=== PATIENT | female | born 1995 | race Caucasian/White ===

== ENCOUNTER 2021-09-20 15:17 | Inpatient (IN) ==
[2021-09-20] MEDS ORDERED: MoRPHine SULFATE 4 MG/ML 1 ML CARP\\VIAL IV STA (15:47)
[2021-09-20] MEDS ORDERED: ONDANSETRON INJ 2 MG/ML 2 ML VIAL IV STA (15:47)
[2021-09-20] MEDS ORDERED: SODIUM CHLORIDE 0.9% 1000ML 1,000 ML IV SCH (15:48)
--- NOTE | 2021-09-20 15:51 | Emergency Department Note ---
History of Present Illness General Chief complaint: Abdominal Pain Stated complaint: URQ PAIN Time Seen by Provider: 09/20/21 15:25 History of Present Illness Maximum Pain Intensity: 7 Patient is a 26-year-old female with past medical history significant for morbid obesity, anxiety, depression, migraine disorder, who presents emergency department for evaluation of right-sided abdominal pain since last evening. Patient notes that she has been having episodes of right upper quadrant pain on and off for several months. She states the pain can come on quite abruptly, unrelated to eating, and last for several hours. She describes it as a dull ache that steadily escalates. She sometimes vomits. She has tried Pepto-Bismol and Gas-X in the past. She thought the pain was "gas pain." Yesterday, the pain started last evening, and has been constant. At its worse, between 1000 and 1300 today, she notes that she was doubled over on the floor in pain, with her discomfort a 10/10. She notes the pain starts in the epigastric and the right upper quadrant, then starts to radiate down to the right lower quadrant and into the right flank. She states the pain became worse even after sipping water today. She currently rates her pain a 7/10. She denies any fever or chills. No vomiting today. She had some loose stools yesterday. No urinary symptoms. She is currently menstruating. She notes that she had an episode of "food poisoning" 1 week ago. She states that they ate out at a restaurant, and she woke up acutely at 4:00 the following morning with aches, chills, low-grade fever and multiple episodes of vomiting. She had no abdominal pain with this. Her symptoms resolved after roughly 24 hours. There is a family history of gallbladder disease. She denies excess caffeine, NSAID or alcohol use. Home Medications Medication Instructions Recorded Confirmed Type sertraline 50 mg tablet 50 mg PO DAILY #90 tab 11/23/20 09/20/21 Rx [id number]-[id number]-[id number] 1 cap PO DAILY PRN #10 cap 08/03/21 09/20/21 Rx 50 mg-300 mg-40 mg capsule (Fioricet) topiramate 100 mg tablet 100 mg PO BID 30 Days #60 tab 08/09/21 09/20/21 Rx sertraline 25 mg tablet 25 mg PO DAILY 09/20/21 09/20/21 History Allergies Allergy/AdvReac Type Severity Reaction Status Date / Time No Known Drug Allergies Allergy Unknown Unknown Verified 09/20/21 16:46 Past Med/Surg History Medical History Anxiety Back pain Depression Migraines Morbid obesity Surgical History History of placement of ear tubes History of wisdom tooth extraction Family History Grandfather (Paternal) Prostate cancer Grandmother Asthma Cancer Heart disease Grandfather Hearing loss Other Allergies Migraine No family history of bleeding disorder Denies family history of Ovarian cancer Diabetes Myocardial infarction Breast cancer Lung cancer Colorectal cancer Hypertension Stroke Social History Smoking Status: Never smoker Second Hand Exposure: No; Hx Alcohol Use: Yes Alcohol type: beer and hard liquor Alcohol Intake Frequency: Monthly or Less Hx Substance Use: No Preferred Language: Scottish Communication Ability: Effective Visual Impairment: No Limitations Hearing Ability: Normal Institutional Research Director Required: No marital status: Single Current Living Situation: Significant Other current occupational status: unemployed How many Children do You have: 0 Feels Safe at Home: Yes Childhood Exposure to Second-Hand Smoke: Yes Dental Care, Regularly: Yes Physical Activity Frequency: 1-2 Times per Week Seatbelt Use: always Sunscreen Use: Yes Review of Systems A total of 10 systems reviewed and were otherwise negative Physical Exam Vital Signs Vital Signs - 24 hr 09/20/21 15:22 09/20/21 16:08 09/20/21 16:10 Temperature 36.8 C Temperature Source Temporal Artery Scan Pulse Rate 83 70 64 Pulse Rate from SpO2 Sensor 72 64 Respiratory Rate 16 15 22 Blood Pressure 139/91 Blood Pressure Mean 107 Pulse Oximetry 96 96 98 Oxygen Delivery Method Room Air Sepsis Recent Fever Within 48 Hours No Sepsis New/Unexplained Change in Mental Status N/A Sepsis Action Taken by Nursing No Action Required 09/20/21 17:12 09/20/21 17:13 09/20/21 17:20 Temperature Temperature Source Pulse Rate 73 73 71 Pulse Rate from SpO2 Sensor 74 74 Respiratory Rate 11 L 17 26 H Blood Pressure 130/89 Blood Pressure Mean 102 Pulse Oximetry 99 93 Oxygen Delivery Method Sepsis Recent Fever Within 48 Hours Sepsis New/Unexplained Change in Mental Status Sepsis Action Taken by Nursing 09/20/21 17:30 09/20/21 17:40 09/20/21 17:50 Temperature Temperature Source Pulse Rate 72 74 69 Pulse Rate from SpO2 Sensor 72 76 70 Respiratory Rate 22 17 26 H Blood Pressure 137/81 Blood Pressure Mean 99 Pulse Oximetry 98 98 98 Oxygen Delivery Method Sepsis Recent Fever Within 48 Hours Sepsis New/Unexplained Change in Mental Status Sepsis Action Taken by Nursing CONSTITUTIONAL: Patient is an overweight, uncomfortable appearing 26-year-old female who is awake and alert and seated on a gurney. Boyfriend is at the bedside. EYES: Pupils equal, round, reactive to light and accommodation. EOMs intact w ithout nystagmus. Sclera are anicteric. ENT: Tympanic membranes intact, with normal landmarks. External canals are clear. Oral and nasopharynx are clear. Mucous membranes are moist, no lesions, tongue and gums appear normal. CARDIOVASCULAR: Regular rate and rhythm, with normal S1 and S2, no murmur or gallop or rub is heard. Peripheral pulses easily palpable. RESPIRATORY: Breath sounds equal and clear to auscultation without wheezes, rales, or rhonchi heard. Full and equal chest expansion without accessory muscle use or retractions. ABDOMEN: Bowel sounds are present. Abdomen is soft, obese, tender to percussion and palpation in the epigastric and the right upper quadrant with voluntary guarding. There is no pain in the right lower quadrant over McBurney's point. INTEGUMENTARY: No lesions or rash, normal skin turgor. LYMPH: No lymphadenopathy. Course Course The patient was seen and assessed as above. Old records are reviewed. She presents the emergency department for evaluation of right upper quadrant abdominal pain, that sounds biliary in nature. IV lock was initiated and laboratory studies were collected. CBC with differential, CMP, lipase, serum hCG and urinalysis were ordered. She was made n.p.o., and hydrated with a liter bolus of normal saline solution. She was medicated with morphine 4 mg and Zofran 4 mg IV. Laboratory studies note and elevated white count at 13,000 with left shift and bandemia noted. No anemia. Electrolytes and renal functions are normal. Bilirubin elevated at 2.3, transaminases all elevated, AST 179, ALT 234, alk phos 111. Lipase is within normal limits. Serum hCG is negative. Urine microscopy is pending. Gallbladder ultrasound notes sludge-filled gallbladder with suspected gallstones. No biliary ductal dilatation. Common bile duct measures 6 mm. No gallbladder wall thickening. No sonographic evidence for acute cholecystitis. Hepatic steatosis noted. Patient was reassessed. She did have some improvement in her pain with the IV m orphine and tolerated the gallbladder ultrasound well. Laboratory and diagnostic imaging studies were reviewed with her. She is aware that she will need to come into the hospital for further work-up and likely surgical intervention. Consultation was placed with general surgery. Patient was reviewed with Dr. Montoya, who recommended medical admission with GI evaluation due to the elevated bilirubin and transaminitis. Consultation was placed with the [facility] for further care and management. Patient reviewed with Dr. Peralta and admitted to their service. Administered Medications Lactated Ringer's (Lr) 1,000 mls @ 125 mls/hr IV .Q8H RAMO Stop: 10/20/21 20:18 Last Admin: 09/20/21 21:49 Dose: 125 mls/hr Documented by: [id number] Discontinued Medications Sodium Chloride (Nss 1000ml) 1,000 mls @ 999 mls/hr IV .Q1H1M RAMO Stop: 09/20/21 16:48 Last Infusion: 09/20/21 19:11 Dose: 0 mls/hr Documented by: [id number] Admin: 09/20/21 16:08 Dose: 999 mls/hr Documented by: [id number] Piperacillin Sod/Tazobactam Sod (Zosyn) 4.5 gm in 120 mls @ 240 mls/hr IV ONE ONE Stop: 09/20/21 18:44 Last Infusion: 09/20/21 19:47 Dose: 0 mls/hr Documented by: [id number] Admin: 09/20/21 19:06 Dose: 240 mls/hr Documented by: [id number] Morphine Sulfate (Morphine Sulfate 4 Mg/Ml 1 Ml Carp\\Vial) 4 mg IV NOW STA Stop: 09/20/21 15:48 Last Admin: 09/20/21 16:08 Dose: 4 mg Documented by: [id number] Ondansetron HCl (Ondansetron Inj 2 Mg/Ml 2 Ml Vial) 4 mg IV NOW STA Stop: 09/20/21 15:48 Last Admin: 09/20/21 16:08 Dose: 4 mg Documented by: [id number] Medical Decision Making Differential Diagnosis Differential diagnoses entertained included GERD, gastritis, esophagitis, peptic ulcer disease, acute pancreatitis, choledocholithiasis, acute cholecystitis, biliary colic, ascending cholangitis, bowel obstruction, perforation, among others. Medical Records Attestation: I reviewed the patient's medical records. Home Medications Current Medication List: was personally reviewed by me Laboratory Data Attestation: I reviewed the patient's lab results. Result diagrams: 09/20/21 16:05 09/20/21 16:05 Lab Results 09/20/21 09/20/21 09/20/21 Range/Units 16:05 16:05 16:05 WBC 12.99 H (4.8-10.8) K/uL RBC 5.06 (4.2-5.4) M/uL Hgb 15.5 (12.0-16.0) g/dL Hct 45.7 (37-47) % MCV 90.3 (80-100) fL MCH 30.6 (25-34) pg MCHC 33.9 (32-36) g/dL RDW Std Deviation 43.2 (36.4-46.3) fL RDW Coeff of Michael 13.1 (11.5-14.5) % Plt Count 391 (130-400) K/uL MPV 10.3 (7.4-10.4) fL Immature Gran % (Auto) 0.3 % Neut % (Auto) 78.1 % Lymph % (Auto) 12.8 % Sublette % (Auto) 7.4 % Eos % (Auto) 1.2 % Baso % (Auto) 0.2 % Neut # (Auto) 10.14 H (1.4-6.5) K/uL Lymph # (Auto) 1.66 (1.2-3.4) K/uL Sublette # (Auto) 0.96 H (0.11-0.59) K/uL Eos # (Auto) 0.16 (0-0.5) K/uL Baso # (Auto) 0.03 (0-0.2) K/uL Immature Gran # (Auto) 0.04 H (0.00-0.02) K/uL Sodium 142 (136-145) mmol/L Potassium 3.8 (3.5-5.1) mmol/L Chloride 105 (98-107) mmol/L Carbon Dioxide 29 (21-32) mmol/L Anion Gap 8 (3-11) BUN 10 (6-23) mg/dl Creatinine 0.90 (0.6-1.2) mg/dl Est Cr Clr Drug Dosing 140.0 ml/min Est GFR ( Amer) 101.6 ml/min Est GFR (Non-Af Amer) 87.6 ml/min BUN/Creatinine Ratio 11.1 (10-20) Glucose 92 (70-99(Fasting)) mg/dl Calcium 8.9 (8.5-10.1) mg/dl Total Bilirubin 2.3 H (0.2-1.0) mg/dl AST 179 H (13-39) U/L ALT 234 H (7-52) U/L Alkaline Phosphatase 111 H (34-104) U/L Total Protein 7.2 (6.0-8.3) gm/dl Albumin 4.3 (3.4-5.0) gm/dl Globulin 2.9 (2.5-4.0) gm/dl Albumin/Globulin Ratio 1.5 (0.9-2) Lipase 31 (11-82) U/L HCG, Qual Negative (Negative) SARS-CoV-2, RNA, NAAT (NEGATIVE) 09/20/21 Range/Units 17:10 WBC (4.8-10.8) K/uL RBC (4.2-5.4) M/uL Hgb (12.0-16.0) g/dL Hct (37-47) % MCV (80-100) fL MCH (25-34) pg MCHC (32-36) g/dL RDW Std Deviation (36.4-46.3) fL RDW Coeff of Michael (11.5-14.5) % Plt Count (130-400) K/uL MPV (7.4-10.4) fL Immature Gran % (Auto) % Neut % (Auto) % Lymph % (Auto) % [place] % (Auto) % Eos % (Auto) % Baso % (Auto) % Neut # (Auto) (1.4-6.5) K/uL Lymph # (Auto) (1.2-3.4) K/uL Sublette # (Auto) (0.11-0.59) K/uL Eos # (Auto) (0-0.5) K/uL Baso # (Auto) (0-0.2) K/uL Immature Gran # (Auto) (0.00-0.02) K/uL Sodium (136-145) mmol/L Potassium (3.5-5.1) mmol/L Chloride (98-107) mmol/L Carbon Dioxide (21-32) mmol/L Anion Gap (3-11) BUN (6-23) mg/dl Creatinine (0.6-1.2) mg/dl Est Cr Clr Drug Dosing ml/min Est GFR ( Amer) ml/min Est GFR (Non-Af Amer) ml/min BUN/Creatinine Ratio (10-20) Glucose (70-99(Fasting)) mg/dl Calcium (8.5-10.1) mg/dl Total Bilirubin (0.2-1.0) mg/dl AST (13-39) U/L ALT (7-52) U/L Alkaline Phosphatase (34-104) U/L Total Protein (6.0-8.3) gm/dl Albumin (3.4-5.0) gm/dl Globulin (2.5-4.0) gm/dl Albumin/Globulin Ratio (0.9-2) Lipase (11-82) U/L HCG, Qual (Negative) SARS-CoV-2, RNA, NAAT NEGATIVE (NEGATIVE) Imaging Data Attestation: I personally reviewed and interpreted this imaging study as follows: Radiologist's Impression: Gallbladder Ultrasound 09/20/21 15:47 US gallbladder CLINICAL HISTORY: Right upper quadrant abdominal pain. COMPARISON STUDY: No previous studies for comparison. FINDINGS: This study is compromised by suboptimal penetration. Hepatic echogenicity is increased. No hepatic lesions are identified although sensitivity is diminished on this exam. There is no biliary ductal dilatation. Common bile duct measures 6 mm in caliber. The gallbladder is largely sludge- filled. There are suspected small gallstones. No sonographic Dhaliwal sign. No gallbladder wall thickening. Pancreas is obscured. No right hydronephrosis is present. IMPRESSION: 1. Largely sludge-filled gallbladder with suspected small gallstones. No sonographic evidence for acute cholecystitis. 2. Hepatic steatosis. 3. No biliary ductal dilatation. 4. Obscured pancreas. ACT 112: Negative or not required by law. Electronically signed by: Gael Mera M.D. 09/20/2021 5:01 PM MDM Narrative See ED Course. Impression & Plan Acute calculous cholecystitis, Elevated LFTs Discharge Plan Visit Data Chief Complaint: Abdominal Pain Stated Complaint: URQ PAIN ED Provider: Steve Patel ED Midlevel Provider: [facility] Discharge Problem: Acute calculous cholecystitis, Elevated LFTs Patient Disposition: Admitted As Inpatient Discharge Instructions Interventions: ED Discharge Assessment Last Done: 09/20/21 19:24
[2021-09-20 16:38] LABS: Basophils # (auto) 0.03 K/uL (0-0.2); Basophils % (auto) 0.2 %; Eosinophils # (auto) 0.16 K/uL (0-0.5); Eosinophils % (auto) 1.2 %; Hematocrit (blood only) 45.7 % (37-47); Hemoglobin 15.5 g/dL (12.0-16.0); Immature Granulocytes # (auto) 0.04 K/uL (0.00-0.02); Immature Granulocytes % (auto) 0.3 %; Lymphocytes # (auto) 1.66 K/uL (1.2-3.4); Lymphocytes % (auto) 12.8 %; Mean Corpuscular Hemoglobin 30.6 pg (25-34); Mean Corpuscular Hgb Conc 33.9 g/dL (32-36); Mean Corpuscular Volume 90.3 fL (80-100); Mean Platelet Volume 10.3 fL (7.4-10.4); Monocytes # (auto) 0.96 K/uL (0.11-0.59); Monocytes % (auto) 7.4 %; Neutrophils # (auto) 10.14 K/uL (1.4-6.5); Neutrophils % (auto) 78.1 %; Platelet Count 391 K/uL (130-400); RDW Coefficient of Variation 13.1 % (11.5-14.5); RDW Standard Deviation 43.2 fL (36.4-46.3); Red Blood Count 5.06 M/uL (4.2-5.4); White Blood Count 12.99 K/uL (4.8-10.8)
[2021-09-20 16:51] LABS: Pregnancy Test, Serum Negative (Negative)
[2021-09-20 17:02] LABS: Albumin Globulin Ratio 1.5 (0.9-2); Albumin Level 4.3 gm/dl (3.4-5.0); BUN Creatinine Ratio 11.1 (10-20); Bilirubin,Total 2.3 mg/dl (0.2-1.0); Calcium 8.9 mg/dl (8.5-10.1); Est GFR (African American) 101.6 ml/min; Est GFR (Non-African American) 87.6 ml/min; Globulin 2.9 gm/dl (2.5-4.0); Potassium 3.8 mmol/L (3.5-5.1); Total Protein 7.2 gm/dl (6.0-8.3)
--- NOTE | 2021-09-20 17:03 | Ultrasound Report ---
US gallbladder CLINICAL HISTORY: Right upper quadrant abdominal pain. COMPARISON STUDY: No previous studies for comparison. FINDINGS: This study is compromised by suboptimal penetration. Hepatic echogenicity is increased. No hepatic lesions are identified although sensitivity is diminished on this exam. There is no biliary d uctal dilatation. Common bile duct measures 6 mm in caliber. The gallbladder is largely sludge-filled . There are suspected small gallstones. No sonographic Dhaliwal sign. No gallbladder wall thickening. P ancreas is obscured. No right hydronephrosis is present. IMPRESSION: 1. Largely sludge-filled gallbladder with suspected small gallstones. No sonographic evidence for acu te cholecystitis. 2. Hepatic steatosis. 3. No biliary ductal dilatation. 4. Obscured pancreas. ACT 112: Negative or not required by law. Electronically signed by: Gael Mera M.D. 09/20/2021 5:01 PM
[2021-09-20] MEDS ORDERED: PIPERACILL/TAZOBAC CONSULT ACTIVE PRN (17:59)
[2021-09-20] MEDS ORDERED: PIPERACILLIN/TAZOBACTAM 3.375 GM in DEXTROSE 5% 100 ML IV ONE (17:59)
--- NOTE | 2021-09-20 18:00 | History & Physical Report ---
Date of Service September 20, 2021 Assessment & Plan (1) Cholelithiasis: Plan: In setting of elevated LFTs suggests blockage. Most likely at gall bladder neck given normal lipase and no biliary dilatation on US. No acute cholecystitis on US but at risk of this given blockage therefore will cover pre-operatively with Zosyn (due to lack of IV metronidazole [place]). Antibiotics can be stopped post operatively as no cholangitis suspected. MRCP as discussed with Dr Reddy - consult GI however ERCP not suspected to be required. Consult surgery for cholecystectomy - she is a low risk surgical candidate. (2) Elevated LFTs: Plan: As above (3) Depression: Plan: Sertraline 75mg PO daily (4) Migraines: Plan: Topiramate 100mg PO BID Plan: VTE Prophylaxis - low risk Diet - NPO Disposition - admit to med/surg Admission and Anticipated Discharge Date Admission Date: September 20, 2021 History of Present Illness Chief Complaint: Abdominal pain Primary Care Provider: DO Juany Haddad Afshan is a 26 year old female who presents to the ER with severe right upper quadrant abdominal pain. She reports intermittent similar pains which resolve spontaneously for months for which she has related to gas pains and taken Gas-X and Pepto-Bismol in the past. However on this occasion she reports much more severe pain in right upper quadrant radiating to back. Associated lo ose stools, nausea and vomiting. Progressively getting more severe, 10/10 at worse, currently resolved after medications given in the ER. No fever or chills. No change to her urine. In the ER total bilirubin 2.3, AST 179, ALT 234, ALP 111. US liver showed largely sludged filled gallbladder with suspected small gallstones with no sonographic evidence of acute cholecystitis. Surgery have been contacted. She was referred to medicine for admission and ongoing management of acute cholecystitis and elevated LFTs. Allergies Allergy/AdvReac Type Severity Reaction Status Date / Time No Known Drug Allergies Allergy Unknown Unknown Verified 09/20/21 16:46 Home Medications Medication Instructions Recorded Confirmed Type sertraline 50 mg tablet 50 mg PO DAILY #90 tab 11/23/20 09/20/21 Rx ljttexezxf-gixoocwmrjxzu-vdiccgiz 1 cap PO DAILY PRN #10 cap 08/03/21 09/20/21 Rx 50 mg-300 mg-40 mg capsule (Fioricet) topiramate 100 mg tablet 100 mg PO BID 30 Days #60 tab 08/09/21 09/20/21 Rx sertraline 25 mg tablet 25 mg PO DAILY 09/20/21 09/20/21 History Past Med/Surg History Medical History Anxiety Back pain Depression Migraines Morbid obesity Surgical History History of placement of ear tubes History of wisdom tooth extraction Family History Grandfather (Paternal) Prostate cancer Grandmother Asthma Cancer Heart disease Grandfather Hearing loss Other Allergies Migraine No family history of bleeding disorder Denies family history of Ovarian cancer Diabetes Myocardial infarction Breast cancer Lung cancer Colorectal cancer Hypertension Stroke Social History Smoking Status: Never smoker Second Hand Exposure: No; Hx Alcohol Use: Yes Alcohol type: beer and hard liquor Alcohol Intake Frequency: Monthly or Less Hx Substance Use: No Preferred Language: Malawian Communication Ability: Effective Visual Impairment: No Limitations Hearing Ability: Normal Superintendent Meters Required: No Beliefs That Will Affect Care: None marital status: Single Current Living Situation: Significant Other Current Living Situation Comment: BOYFRIEND current occupational status: unemployed How many Children do You have: 0 Feels Safe at Home: Yes Safety Concerns: Feels Safe At This Time Childhood Exposure to Second-Hand Smoke: Yes Dental Care, Regularly: Yes Physical Activity Frequency: 1-2 Times per Week Seatbelt Use: always Sunscreen Use: Yes Review of Systems Review of Systems: All systems reviewed & are unremarkable except as noted in HPI & below Physical Exam Constitutional: WD/WN, vitals as above ENMT: external ear and nose normal, oropharynx normal Respiratory: normal respiratory effort, lungs clear to auscultation Cardiovascular: RRR, no murmur, no edema Gastrointestinal (Abdomen): Inspection/Auscultation: normal bowel sounds Percussion/Palpation: abdomen soft; abdomen nontender, no guarding and abdomen not rigid Skin: no rashes, warm and dry Neurologic: moves all extremities and awake; not confused Psychiatric: A+Ox3, euthymic affect Results & Data Results & Data ([facility]) Vital Signs (Past 12 Hours) Vital Signs Temp Pulse Resp BP Pulse Ox 09/20/21 17:30 72 22 137/81 98 09/20/21 17:20 71 26 H 93 09/20/21 17:13 73 17 130/89 99 09/20/21 17:12 73 11 L 09/20/21 16:10 64 22 98 09/20/21 16:08 70 15 96 09/20/21 15:22 36.8 C 83 16 139/91 96 Laboratory Results Abnormal lab results 09/20/21 09/20/21 Range/Units 16:05 16:05 WBC 12.99 H (4.8-10.8) K/uL Neut # (Auto) 10.14 H (1.4-6.5) K/uL Mayes # (Auto) 0.96 H (0.11-0.59) K/uL Immature Gran # (Auto) 0.04 H (0.00-0.02) K/uL Total Bilirubin 2.3 H (0.2-1.0) mg/dl AST 179 H (13-39) U/L ALT 234 H (7-52) U/L Alkaline Phosphatase 111 H (34-104) U/L Diagnostic Findings US gallbladder CLINICAL HISTORY: Right upper quadrant abdominal pain. COMPARISON STUDY: No previous studies for comparison. FINDINGS: This study is compromised by suboptimal penetration. Hepatic echogenicity is increased. No hepatic lesions are identified although sensitivity is diminished on this exam. There is no biliary ductal dilatation. Common bile duct measures 6 mm in caliber. The gallbladder is largely sludge- filled. There are suspected small gallstones. No sonographic Dhaliwal sign. No gallbladder wall thickening. Pancreas is obscured. No right hydronephrosis is present. IMPRESSION: 1. Largely sludge-filled gallbladder with suspected small gallstones. No sonographic evidence for acute cholecystitis. 2. Hepatic steatosis. 3. No biliary ductal dilatation. 4. Obscured pancreas. Medications Administered ER Medications Given: NSS 1L bolus Ondansetron 4mg IV Code Status & VTE Plan Code Status Full VTE Prophylaxis Plan VTE Prophylaxis will be ordered: No Reason for no VTE drug order: Treatment not indicated Reason for no VTE mechanical prophylaxis: Treatment not indicated PG Care Time/CCT Total # of Minutes Spent Total Time Spent with Patient: Total time spent is greater than 50% in coordination of care (as documented) at patient's floor/unit and/or counseling patient: Coding Level of Care Code 98934 Initial Inpt Care Lvl 2 Diagnoses Elevated LFTs R79.89 Cholelithiasis K80.20 Depression F32.A Migraines G43.909
[2021-09-20] MEDS ORDERED: PIPERACILLIN/TAZOBACTAM 4.5 GM/120 ML BAG IV ONE (18:15)
--- NOTE | 2021-09-20 19:20 | Surgery Consultation ---
Date of Consultation September 20, 2021 Assessment & Plan (1) Cholelithiasis: (2) Elevated LFTs: [id number] woman presents with gastric pain with stones and sludge in her gallbladder. White blood cell count is 13. She does have an elevated total bilirubin as well as alk phos and LFTs. She will be admitted to medicine, with GI consulting. She may require ERCP or at least MRCP to further evaluate her common bile duct. I have discussed with her briefly the procedure for laparoscopic cholecystectomy. She will need her gallbladder out during this admission. We will follow along. She will be started on IV fluids and IV antibiotics. History of Present Illness Reason for Consultation: Symptomatic cholelithiasis, acute cholecystitis, choledocholithiasis Requesting Physician: ER physician Attending Physician: ER physician History of Present Illness 26-year-old woman presents with right upper and epigastric abdominal pain over the past 2 days. The pain is worsening. She has never had pain like this in the past. She denies nausea vomiting. She is not been able to eat, however. She denies acholic stools, dark urine, jaundice, pruritus. She denies chest pain or shortness of breath. She denies fever but has had some chills. Ultrasound demonstrates sludge and stones in the gallbladder. Total bilirubin is 2.3. Other LFTs are elevated as well. Allergies Allergy/AdvReac Type Severity Reaction Status Date / Time No Known Drug Allergies Allergy Unknown Unknown Verified 09/20/21 16:46 Home Medications Medication Instructions Recorded Confirmed Type sertraline 50 mg tablet 50 mg PO DAILY #90 tab 11/23/20 09/20/21 Rx iyqczdpruq-rhxlhaunzvupi-dpdpofku 1 cap PO DAILY PRN #10 cap 08/03/21 09/20/21 Rx 50 mg-300 mg-40 mg capsule (Fioricet) topiramate 100 mg tablet 100 mg PO BID 30 Days #60 tab 08/09/21 09/20/21 Rx sertraline 25 mg tablet 25 mg PO DAILY 09/20/21 09/20/21 History Patient History Medical History Anxiety Back pain Depression Migraines Morbid obesity Surgical History History of placement of ear tubes History of wisdom tooth extraction Family History Grandfather (Paternal) Prostate cancer Grandmother Asthma Cancer Heart disease Grandfather Hearing loss Other Allergies Migraine No family history of bleeding disorder Denies family history of Ovarian cancer Diabetes Myocardial infarction Breast cancer Lung cancer Colorectal cancer Hypertension Stroke Social History Smoking Status: Never smoker Second Hand Exposure: No; Hx Alcohol Use: Yes Alcohol type: beer and hard liquor Alcohol Intake Frequency: Monthly or Less Hx Substance Use: No Preferred Language: Indonesian Communication Ability: Effective Visual Impairment: No Limitations Hearing Ability: Normal System Trainer Required: No marital status: Single Current Living Situation: Significant Other current occupational status: unemployed How many Children do You have: 0 Feels Safe at Home: Yes Childhood Exposure to Second-Hand Smoke: Yes Dental Care, Regularly: Yes Physical Activity Frequency: 1-2 Times per Week Seatbelt Use: always Sunscreen Use: Yes Review of Systems Review of Systems: All systems reviewed & are unremarkable except as noted in HPI & below Physical Exam Constitutional: WD/WN, vitals as above Neck: trachea midline, no thyromegaly Respiratory: normal respiratory effort, lungs clear to auscultation Cardiovascular: RRR, no murmur, no edema Gastrointestinal (Abdomen): Inspection/Auscultation: abdomen normal to insp ection; abdomen not distended Percussion/Palpation: + abdomen tender (Right upper quadrant) and abdomen soft; no guarding and abdomen not rigid Musculoskeletal: Extremities: no cyanosis and no clubbing Skin: no rashes, warm and dry Psychiatric: A+Ox3, euthymic affect Results & Data ([facility]) Vital Signs (Past 12 Hours) Vital Signs Temp Pulse Pulse Resp BP BP Pulse Ox 09/20/21 19:00 66 18 128/60 100 09/20/21 18:20 69 15 97 09/20/21 18:10 75 16 95 09/20/21 18:00 62 20 153/84 H 97 09/20/21 17:50 69 26 H 98 09/20/21 17:40 74 17 98 09/20/21 17:30 72 22 137/81 98 09/20/21 17:20 71 26 H 93 09/20/21 17:13 73 17 130/89 99 09/20/21 17:12 73 11 L 09/20/21 16:10 64 22 98 09/20/21 16:08 70 15 96 09/20/21 15:22 36.8 C 83 16 139/91 96 Laboratory Results 09/20/21 09/20/21 09/20/21 Range/Units 17:10 16:05 16:05 WBC (4.8-10.8) K/uL RBC (4.2-5.4) M/uL Hgb (12.0-16.0) g/dL Hct (37-47) % MCV (80-100) fL MCH (25-34) pg MCHC (32-36) g/dL RDW Std Deviation (36.4-46.3) fL RDW Coeff of Michael (11.5-14.5) % Plt Count (130-400) K/uL MPV (7.4-10.4) fL Immature Gran % (Auto) % Neut % (Auto) % Lymph % (Auto) % [facility] % (Auto) % Eos % (Auto) % Baso % (Auto) % Neut # (Auto) (1.4-6.5) K/uL Lymph # (Auto) (1.2-3.4) K/uL [facility] # (Auto) (0.11-0.59) K/uL Eos # (Auto) (0-0.5) K/uL Baso # (Auto) (0-0.2) K/uL Immature Gran # (Auto) (0.00-0.02) K/uL Sodium 142 (136-145) mmol/L Potassium 3.8 (3.5-5.1) mmol/L Chloride 105 (98-107) mmol/L Carbon Dioxide 29 (21-32) mmol/L Anion Gap 8 (3-11) BUN 10 (6-23) mg/dl Creatinine 0.90 (0.6-1.2) mg/dl Est Cr Clr Drug Dosing 140.0 ml/min Est GFR ( Amer) 101.6 ml/min Est GFR (Non-Af Amer) 87.6 ml/min BUN/Creatinine Ratio 11.1 (10-20) Glucose 92 (70-99(Fasting)) mg/dl Calcium 8.9 (8.5-10.1) mg/dl Total Bilirubin 2.3 H (0.2-1.0) mg/dl AST 179 H (13-39) U/L ALT 234 H (7-52) U/L Alkaline Phosphatase 111 H (34-104) U/L Total Protein 7.2 (6.0-8.3) gm/dl Albumin 4.3 (3.4-5.0) gm/dl Globulin 2.9 (2.5-4.0) gm/dl Albumin/Globulin Ratio 1.5 (0.9-2) Lipase 31 (11-82) U/L HCG, Qual Negative (Negative) SARS-CoV-2, RNA, NAAT NEGATIVE (NEGATIVE) 09/20/21 Range/Units 16:05 WBC 12.99 H (4.8-10.8) K/uL RBC 5.06 (4.2-5.4) M/uL Hgb 15.5 (12.0-16.0) g/dL Hct 45.7 (37-47) % MCV 90.3 (80-100) fL MCH 30.6 (25-34) pg MCHC 33.9 (32-36) g/dL RDW Std Deviation 43.2 (36.4-46.3) fL RDW Coeff of Michael 13.1 (11.5-14.5) % Plt Count 391 (130-400) K/uL MPV 10.3 (7.4-10.4) fL Immature Gran % (Auto) 0.3 % Neut % (Auto) 78.1 % Lymph % (Auto) 12.8 % [facility] % (Auto) 7.4 % Eos % (Auto) 1.2 % Baso % (Auto) 0.2 % Neut # (Auto) 10.14 H (1.4-6.5) K/uL Lymph # (Auto) 1.66 (1.2-3.4) K/uL [facility] # (Auto) 0.96 H (0.11-0.59) K/uL Eos # (Auto) 0.16 (0-0.5) K/uL Baso # (Auto) 0.03 (0-0.2) K/uL Immature Gran # (Auto) 0.04 H (0.00-0.02) K/uL Sodium (136-145) mmol/L Potassium (3.5-5.1) mmol/L Chloride (98-107) mmol/L Carbon Dioxide (21-32) mmol/L Anion Gap (3-11) BUN (6-23) mg/dl Creatinine (0.6-1.2) mg/dl Est Cr Clr Drug Dosing ml/min Est GFR ( Amer) ml/min Est GFR (Non-Af Amer) ml/min BUN/Creatinine Ratio (10-20) Glucose (70-99(Fasting)) mg/dl Calcium (8.5-10.1) mg/dl Total Bilirubin (0.2-1.0) mg/dl AST (13-39) U/L ALT (7-52) U/L Alkaline Phosphatase (34-104) U/L Total Protein (6.0-8.3) gm/dl Albumin (3.4-5.0) gm/dl Globulin (2.5-4.0) gm/dl Albumin/Globulin Ratio (0.9-2) Lipase (11-82) U/L HCG, Qual (Negative) SARS-CoV-2, RNA, NAAT (NEGATIVE) Diagnostic Findings US gallbladder CLINICAL HISTORY: Right upper quadrant abdominal pain. COMPARISON STUDY: No previous studies for comparison. FINDINGS: This study is compromised by suboptimal penetration. Hepatic ech ogenicity is increased. No hepatic lesions are identified although sensitivity is diminished on this exam. There is no biliary ductal dilatation. Common bile duct measures 6 mm in caliber. The gallbladder is largely sludge-filled. There are suspected small gallstones. No sonographic Dhaliwal sign. No gallbladder wall thickening. Pancreas is obscured. No right hydronephrosis is present. IMPRESSION: 1. Largely sludge-filled gallbladder with suspected small gallstones. No sonographic evidence for acute cholecystitis. 2. Hepatic steatosis. 3. No biliary ductal dilatation. 4. Obscured pancreas.
[2021-09-20] MEDS ORDERED: METOPROLOL TARTRATE 1 MG/ML VIAL IV PRN (20:28)
[2021-09-20] MEDS: LACTATED RINGER'S 1,000 ML IV SCH (21:49)
[2021-09-20] MEDS: TOPIRAMATE 100 MG TAB PO SCH (22:13)
[2021-09-20] MEDS ORDERED: HYDROmorphone INJ 0.5 MG/0.5 ML SYR IV PRN (22:24)
[2021-09-20] MEDS ORDERED: ONDANSETRON INJ 2 MG/ML 2 ML VIAL IV PRN (22:24)
[2021-09-20] MEDS ORDERED: ACETAMINOPHEN 325 MG TAB PO PRN (22:26)
[2021-09-20] MEDS: PIPERACILLIN/TAZOBACTAM 4.5 GM in DEXTROSE 5% 100 ML IV SCH (23:15)
[2021-09-21] MEDS: LACTATED RINGER'S 1,000 ML IV SCH ×3 (06:08→17:42)
[2021-09-21] MEDS: TOPIRAMATE 100 MG TAB PO SCH ×2 (07:54→20:11)
[2021-09-21] MEDS: SERTRALINE HCL 50 MG TABLET PO SCH (07:54)
[2021-09-21 08:01] LABS: Basophils # (auto) 0.02 K/uL (0-0.2); Basophils % (auto) 0.2 %; Eosinophils # (auto) 0.26 K/uL (0-0.5); Eosinophils % (auto) 2.5 %; Hematocrit (blood only) 44.4 % (37-47); Hemoglobin 14.8 g/dL (12.0-16.0); Immature Granulocytes # (auto) 0.03 K/uL (0.00-0.02); Immature Granulocytes % (auto) 0.3 %; Lymphocytes # (auto) 3.17 K/uL (1.2-3.4); Lymphocytes % (auto) 30.5 %; Mean Corpuscular Hemoglobin 30.4 pg (25-34); Mean Corpuscular Hgb Conc 33.3 g/dL (32-36); Mean Corpuscular Volume 91.2 fL (80-100); Mean Platelet Volume 9.9 fL (7.4-10.4); Monocytes # (auto) 0.83 K/uL (0.11-0.59); Neutrophils # (auto) 6.07 K/uL (1.4-6.5); Neutrophils % (auto) 58.5 %; Platelet Count 347 K/uL (130-400); RDW Coefficient of Variation 13.2 % (11.5-14.5); RDW Standard Deviation 43.8 fL (36.4-46.3); Red Blood Count 4.87 M/uL (4.2-5.4); White Blood Count 10.38 K/uL (4.8-10.8)
[2021-09-21 08:24] LABS: BUN Creatinine Ratio 7.4 (10-20); Creatinine Clr Calc Pharmacy 134.3 ml/min; Est GFR (African American) 96.4 ml/min; Est GFR (Non-African American) 83.1 ml/min; Potassium 3.7 mmol/L (3.5-5.1)
[2021-09-21 08:25] LABS: Albumin Globulin Ratio 1.6 (0.9-2); Albumin Level 3.9 gm/dl (3.4-5.0); Bilirubin,Total 2.2 mg/dl (0.2-1.0); Calcium 8.6 mg/dl (8.5-10.1); Globulin 2.5 gm/dl (2.5-4.0); Total Protein 6.4 gm/dl (6.0-8.3)
[2021-09-21] MEDS ORDERED: INDOMETHACIN 50 MG SUPP PR ONE ×3 (08:27→13:15)
--- NOTE | 2021-09-21 08:50 | Magnetic Resonance Report ---
MRCP CLINICAL HISTORY: cholelithiasis, elevated LFTs, r/o choledocholithiasis. TECHNIQUE: Utilizing a 1.5 Jodi magnet and dedicated coil, multiplanar, multiecho imaging of the [facility] er abdomen was performed utilizing heavily T2 weighted pulsing sequences without IV contrast. COMPARISON STUDY: Right upper quadrant ultrasound September 20, 2021. FINDINGS: Mild hepatomegaly is noted. Hepatic steatosis is better depicted on right upper quadrant ul trasound September 20, 2021. No hepatic lesions are identified on this unenhanced exam. No intra or extrah epatic biliary ductal dilatation is identified. Common bile duct measures 5 mm in caliber. No common bile duct calculi are identified. There is no hepatic ductal dilatation. No peripancreatic fluid or s tranding. Possible pancreas divisum. Several gallstones are noted within the gallbladder, including a calculus within the gallbladder neck. These measure up to 1.6 cm. There is no pericholecystic fluid. No gallbladder wall thickening. Unenhanced images of the spleen, adrenal glands and kidneys are unre markable with exception of a subcentimeter suspected cyst within the lower pole of the left kidney. N o hydronephrosis. Caliber of visualized small and large bowel is normal. IMPRESSION: 1. No biliary ductal dilatation. No common bile duct calculi identified. 2. Cholelithiasis. No convincing evidence for acute cholecystitis. 3. Hepatic steatosis. Mild hepatomegaly. ACT 112: Negative or not required by law. Electronically signed by: Gael Mera M.D. 09/21/2021 8:48 AM
[2021-09-21] MEDS ORDERED: SERTRALINE HCL 50 MG TABLET PO SCH (09:00)
[2021-09-21] MEDS: PIPERACILLIN/TAZOBACTAM 4.5 GM in DEXTROSE 5% 100 ML IV SCH ×2 (09:27→15:32)
--- NOTE | 2021-09-21 09:34 | Gastrointestinal Consultation ---
Date of Consultation September 21, 2021 Assessment & Plan (1) Elevated LFTs: (2) Cholelithiasis: Pt is a 26 yo female w R sided abd pain, nausea, noted to have elevated LFTs and abd imaging studies showed stones & sludge in gallbladder, MRCP w/o signs of CBD dilation or stones - NPO - Continue antibiotics - Plan for EUS/ERCP by Dr. Lopez in [place] - Surgery following - Trend LFTs after procedures Supervising Physician Co-Signing Physician Notes I saw and evaluated the patient we are planning to do upper endoscopic ultrasound and possible ERCP today for suspected choledocholithiasis. The patient had presented with abdominal pain and had a significant elevation of her liver associated enzymes. The patient does have a body habitus which makes imaging study somewhat unreliable. The patient notes that she has intermittent pain still but is feeling better than yesterday. Physical examination: right upper quadrant tender to palpation mild scleral icterus noted Impression: Patient presents with cholelithiasis, given the elevated liver enzymes and bilirubin I wonder about choledocholithiasis. I think clearing the patient's duct prior to cholecystectomy would be prudent. I discussed the risks and benefits of endoscopic ultrasound to include bleeding, infection, perforation, pain and need for follow-up studies. We have also discussed the potential applications of ERCP to include bleeding, infection, perforation, failed biliary cannulation and pancreatitis. History of Present Illness Reason for Consultation: Cholelithiasis, elevated LFTs Requesting Physician: Dr. Paulo Breen Attending Physician: Dr. Eliseo Lopez History of Present Illness Pt is a 26 yo female who presented yesterday w c/o R sided abd pain. She has this pain intermittently in the past few months, feels like "gas pain" and usually goes away w Gas X. However yesterday has nausea, poor appetite and persistent R sided pain. She denies fever, chills, jaundice, changes in bowel habits. On evaluation, noted to have increased WBC and LFTs, normal lipase. Abd imaging studies w u/s and MRCP showed gallbladder filled w sludge and stones, CBD 5mm. Liver appears slightly enlarged w fatty infiltration Denies ETOH, tobacco, illicit drugs, APAP uses Denies family hx of AIH, iron/copper overload. Father w gallbladder disease. Allergies Allergy/AdvReac Type Severity Reaction Status Date / Time No Known Drug Allergies Allergy Unknown Unknown Verified 09/20/21 16:46 Home Medications Medication Instructions Recorded Confirmed Type sertraline 50 mg tablet 50 mg PO DAILY #90 tab 11/23/20 09/20/21 Rx jsilgregen-cpuvxpfyostpi-kzyymrab 1 cap PO DAILY PRN #10 cap 08/03/21 09/20/21 Rx 50 mg-300 mg-40 mg capsule (Fioricet) topiramate 100 mg tablet 100 mg PO BID 30 Days #60 tab 08/09/21 09/20/21 Rx sertraline 25 mg tablet 25 mg PO DAILY 09/20/21 09/20/21 History Patient History Medical History Anxiety Back pain Depression Migraines Morbid obesity Surgical History History of placement of ear tubes History of wisdom tooth extraction Family History Grandfather (Paternal) Prostate cancer Grandmother Asthma Cancer Heart disease Grandfather Hearing loss Other Allergies Migraine No family history of bleeding disorder Denies family history of Ovarian cancer Diabetes Myocardial infarction Breast cancer Lung cancer Colorectal cancer Hypertension Stroke Social History Smoking Status: Never smoker Second Hand Exposure: No; Hx Alcohol Use: Yes Alcohol type: beer and hard liquor Alcohol Intake Frequency: Monthly or Less Hx Substance Use: No Preferred Language: Amharic Communication Ability: Effective Visual Impairment: No Limitations Hearing Ability: Normal Blocker Heated Metal Forms Required: No Beliefs That Will Affect Care: None marital status: Single Current Living Situation: Significant Other Current Living Situation Comment: BOYFRIEND current occupational status: unemployed How many Children do You have: 0 Feels Safe at Home: Yes Childhood Exposure to Second-Hand Smoke: Yes Dental Care, Regularly: Yes Physical Activity Frequency: 1-2 Times per Week Seatbelt Use: always Sunscreen Use: Yes Assistive Devices: None Review of Systems Review of Systems: All systems reviewed & are unremarkable except as noted in HPI & below Physical Exam Constitutional: WD/WN, vitals as above well groomed, cooperative and comfortable Eyes: PERRL, conjunctivae normal, anicteric sclerae ENMT: external ear and nose normal, oropharynx normal Respiratory: normal respiratory effort, lungs clear to auscultation Cardiovascular: RRR, no murmur, no edema Gastrointestinal (Abdomen): normal bowel sounds, soft, nontender, no hepatosplenomegaly Skin: no rashes, warm and dry no jaundice Psychiatric: A+Ox3, euthymic affect Lymphatic: no lymphedema Results & Data ([facility]) Vital Signs (Past 12 Hours) Vital Signs Temp Pulse Resp BP Pulse Ox 09/21/21 07:24 36.5 C 66 16 129/76 96 09/20/21 22:53 36.5 C 72 20 123/76 97
--- NOTE | 2021-09-21 11:54 | Surgery Progress Note ---
Date of Service September 21, 2021 Assessment & Plan (1) Acute calculous cholecystitis: (2) Cholelithiasis: (3) Elevated LFTs: Plan: 26-year-old woman with cholecystitis and choledocholithiasis, suspected. I discussed the case with gastroenterology. They will proceed with ERCP today. I have discussed with her laparoscopic cholecystectomy for tomorrow. She is agreeable with this plan. We have her set for 830 tomorrow morning. N.p.o. after midnight tonight for surgery tomorrow. Admission and Anticipated Discharge Date Admission Date: September 20, 2021 Subjective She is feeling better this morning. Less pain. She denies fevers or nausea. Set for ERCP this afternoon. Physical Exam Constitutional: WD/WN, vitals as above Neck: trachea midline, no thyromegaly Gastrointestinal (Abdomen): Inspection/Auscultation: abdomen normal to inspection; abdomen not distended Percussion/Palpation: abdomen soft Musculoskeletal: Extremities: no cyanosis and no clubbing Skin: no rashes, warm and dry Psychiatric: A+Ox3, euthymic affect Results & Data ([facility]) Vital Signs (Past 12 Hours) Vital Signs Temp Pulse Resp BP Pulse Ox 09/21/21 07:24 36.5 C 66 16 129/76 96 Laboratory Results 09/21/21 09/21/21 09/20/21 Range/Units 07:46 07:46 17:10 WBC 10.38 (4.8-10.8) K/uL RBC 4.87 (4.2-5.4) M/uL Hgb 14.8 (12.0-16.0) g/dL Hct 44.4 (37-47) % MCV 91.2 (80-100) fL MCH 30.4 (25-34) pg MCHC 33.3 (32-36) g/dL RDW Std Deviation 43.8 (36.4-46.3) fL RDW Coeff of Michael 13.2 (11.5-14.5) % Plt Count 347 (130-400) K/uL MPV 9.9 (7.4-10.4) fL Immature Gran % (Auto) 0.3 % Neut % (Auto) 58.5 % Lymph % (Auto) 30.5 % [place] % (Auto) 8.0 % Eos % (Auto) 2.5 % Baso % (Auto) 0.2 % Neut # (Auto) 6.07 (1.4-6.5) K/uL Lymph # (Auto) 3.17 (1.2-3.4) K/uL [place] # (Auto) 0.83 H (0.11-0.59) K/uL Eos # (Auto) 0.26 (0-0.5) K/uL Baso # (Auto) 0.02 (0-0.2) K/uL Immature Gran # (Auto) 0.03 H (0.00-0.02) K/uL Sodium 139 (136-145) mmol/L Potassium 3.7 (3.5-5.1) mmol/L Chloride 108 H (98-107) mmol/L Carbon Dioxide 26 (21-32) mmol/L Anion Gap 5 (3-11) BUN 7 (6-23) mg/dl Creatinine 0.94 (0.6-1.2) mg/dl Est Cr Clr Drug Dosing 134.3 ml/min Est GFR ( Amer) 96.4 ml/min Est GFR (Non-Af Amer) 83.1 ml/min BUN/Creatinine Ratio 7.4 L (10-20) Glucose 94 (70-99(Fasting)) mg/dl Calcium 8.6 (8.5-10.1) mg/dl Total Bilirubin 2.2 H (0.2-1.0) mg/dl AST 156 H (13-39) U/L ALT 242 H (7-52) U/L Alkaline Phosphatase 103 (34-104) U/L Total Protein 6.4 (6.0-8.3) gm/dl Albumin 3.9 (3.4-5.0) gm/dl Globulin 2.5 (2.5-4.0) gm/dl Albumin/Globulin Ratio 1.6 (0.9-2) Lipase (11-82) U/L HCG, Qual (Negative) SARS-CoV-2, RNA, NAAT NEGATIVE (NEGATIVE) 09/20/21 09/20/21 09/20/21 Range/Units 16:05 16:05 16:05 WBC 12.99 H (4.8-10.8) K/uL RBC 5.06 (4.2-5.4) M/uL Hgb 15.5 (12.0-16.0) g/dL Hct 45.7 (37-47) % MCV 90.3 (80-100) fL MCH 30.6 (25-34) pg MCHC 33.9 (32-36) g/dL RDW Std Deviation 43.2 (36.4-46.3) fL RDW Coeff of Michael 13.1 (11.5-14.5) % Plt Count 391 (130-400) K/uL MPV 10.3 (7.4-10.4) fL Immature Gran % (Auto) 0.3 % Neut % (Auto) 78.1 % Lymph % (Auto) 12.8 % [place] % (Auto) 7.4 % Eos % (Auto) 1.2 % Baso % (Auto) 0.2 % Neut # (Auto) 10.14 H (1.4-6.5) K/uL Lymph # (Auto) 1.66 (1.2-3.4) K/uL [place] # (Auto) 0.96 H (0.11-0.59) K/uL Eos # (Auto) 0.16 (0-0.5) K/uL Baso # (Auto) 0.03 (0-0.2) K/uL Immature Gran # (Auto) 0.04 H (0.00-0.02) K/uL Sodium 142 (136-145) mmol/L Potassium 3.8 (3.5-5.1) mmol/L Chloride 105 (98-107) mmol/L Carbon Dioxide 29 (21-32) mmol/L Anion Gap 8 (3-11) BUN 10 (6-23) mg/dl Creatinine 0.90 (0.6-1.2) mg/dl Est Cr Clr Drug Dosing 140.0 ml/min Est GFR ( Amer) 101.6 ml/min Est GFR (Non-Af Amer) 87.6 ml/min BUN/Creatinine Ratio 11.1 (10-20) Glucose 92 (70-99(Fasting)) mg/dl Calcium 8.9 (8.5-10.1) mg/dl Total Bilirubin 2.3 H (0.2-1.0) mg/dl AST 179 H (13-39) U/L ALT 234 H (7-52) U/L Alkaline Phosphatase 111 H (34-104) U/L Total Protein 7.2 (6.0-8.3) gm/dl Albumin 4.3 (3.4-5.0) gm/dl Globulin 2.9 (2.5-4.0) gm/dl Albumin/Globulin Ratio 1.5 (0.9-2) Lipase 31 (11-82) U/L HCG, Qual Negative (Negative) SARS-CoV-2, RNA, NAAT (NEGATIVE)
--- NOTE | 2021-09-21 12:24 | Hospitalist Progress Note ---
Date of Service September 21, 2021 Assessment & Plan (1) Cholelithiasis: Plan: 26-year-old white female with no significant underlying past medical history presented with abdominal discomfort * mild leukocytosis, afebrile * Abnormal LFTs * Right upper quadrant ultrasound showing sludge filled gallbladder with small stones. No evidence of cholecystitis as no pericholecystic fluid. No ductal dilatation * MRCP showing: And a stone in the gallbladder neck. No convincing evidence for acute cholecystitis. Questionable pancreas divisum but normal lipase noted * Seen by general surgery and GIappreciate assistance * Plan is for ERCP today followed by cholecystectomy tomorrow * Continue antiemetics and IV pain medication as needed (2) Elevated LFTs: Plan: * Likely secondary to stones and sludgesee above as outlined * Total bilirubin: 2.3. AST: 179. ALT: 234 * For ERCP today and then cholecystectomy * Continue to follow labs (3) Depression: Plan: * Continue sertraline 75mg PO daily (4) Migraines: Plan: * Continue topiramate 100mg PO BID (5) Morbid obesity with BMI of 45.0-49.9, adult: Plan: VTE Prophylaxis - low risk Diet - NPO Plan of care will be discussed with Dr. Lynch. Further orders as warranted. Admission and Anticipated Discharge Date Admission Date: September 20, 2021 Supervising Physician Co-Signing Physician Notes Attending Attestation - Chart reviewed, care plan d/w KIMBER [place]. I agree with the ansari components of her documentation with 1 addition - morbid obesity, BMI near 50. Paulo Lynch MD Subjective Patient seen on daily rounds today. Hospitalized yesterday given abdominal pain. Found to have elevated LFTs and stones/sludge in the gallbladder. Afebrile with mild leukocytosis (12.9). Hemodynamically stable. For ERCP this afternoon For cholecystectomy tomorrow Upon further discussion, patient reports intermittent abdominal discomfort X several months. Over the past 2 days, pain has since been constant and severe prompting her evaluation into the ED denies nausea or vomiting. Denies fevers or chills. Review of Systems Review of Systems: All systems reviewed and are unremarkable except as noted in HPI and below Denies fevers, chills, headache, nasal congestion, sore throat, cough, chest pain, shortness of breath, palpitations, orthopnea, PND, nausea, vomiting, diarrhea, constipation, dysuria, hematuria, frequency, back pain, joint pain or swelling, easy bruising or bleeding, skin lesions or rashes. Physical Exam Physical Exam: General: Resting comfortably in her hospital bed. She does not appear ill or toxic. NAD. HEENT: Head is AT/NC. Buccal mucosa is moist and pink Neck: No JVD. Negative hepatojugular reflex Cardiac: RRR with 1/6 NIKOLE Lungs: CTA without W/R/R Abdomen: Normoactive X4. Soft. Nontender in all quadrants. Negative Dhaliwal sign. Extremities: No peripheral clubbing cyanosis or edema Neuro: A&O X4. Cranial nerves II through XII are grossly intact. No focal neuro deficits Skin: No obvious skin lesions or rashes Psych: Appropriate affect. Pleasant and cooperative Results & Data Results & Data ([facility]) Vital Signs (Past 12 Hours) Vital Signs Temp Pulse Resp BP Pulse Ox 09/21/21 07:24 36.5 C 66 16 129/76 96 Laboratory Results 09/21/21 07:46 09/21/21 07:46 Total bilirubin: 2.2 AST: 156 ALT: 242 Lipase: 31 Diagnostic Findings MRCP: FINDINGS: Mild hepatomegaly is noted. Hepatic steatosis is better depicted on right upper quadrant ultrasound September 20, 2021. No hepatic lesions are identified on this unenhanced exam. No intra or extrahepatic biliary ductal dilatation is identified. Common bile duct measures 5 mm in caliber. No common bile duct calculi are identified. There is no hepatic ductal dilatation. No peripancreatic fluid or stranding. Possible pancreas divisum. Several gallstones are noted within the gallbladder, including a calculus within the gallbladder neck. These measure up to 1.6 cm. There is no pericholecystic fluid. No gallbladder wall thickening. Unenhanced images of the spleen, adrenal glands and kidneys are unremarkable with exception of a subcentimeter suspected cyst within the lower pole of the left kidney. No hydronephrosis. Caliber of visualized small and large bowel is normal. IMPRESSION: 1. No biliary ductal dilatation. No common bile duct calculi identified. 2. Cholelithiasis. No convincing evidence for acute cholecystitis. 3. Hepatic steatosis. Mild hepatomegaly. PG Care Time/CCT Total # of Minutes Spent Total Time Spent with Patient: Total time spent is greater than 50% in coordination of care (as documented) at patient's floor/unit and/or counseling patient: Coding Level of Care Code 77916 Subseq Hosp Care Lvl 2 Diagnoses Cholelithiasis K80.20 Elevated LFTs R79.89 Depression F32.A Migraines G43.909 Morbid obesity with BMI of 45.0-49.9, adult E66.01; Z68.42
[2021-09-21] MEDS ORDERED: PROPOFOL IV EMULSION 10 MG/ML 20 ML VIAL IV ONE (12:33)
[2021-09-21] MEDS ORDERED: ONDANSETRON INJ 2 MG/ML 2 ML VIAL ONE (12:33)
[2021-09-21] MEDS ORDERED: fentaNYL citrate 100 MCG/2 ML VIAL ONE (12:33)
[2021-09-21] MEDS ORDERED: SUCCINYLCHOLINE CHLORIDE 20 MG/ML 10 ML VIAL IV ONE (12:33)
[2021-09-21] MEDS ORDERED: fentaNYL citrate 100 MCG/2 ML VIAL IV PRN (12:53)
[2021-09-21] MEDS ORDERED: ONDANSETRON INJ 2 MG/ML 2 ML VIAL IV PRN (12:53)
[2021-09-21] MEDS ORDERED: ePHEDrine sulfate 50 MG/ML AMP IV PRN (12:53)
[2021-09-21] MEDS ORDERED: ATROPINE SULFATE 0.1 MG/ML 10ML SYR IV PRN (12:53)
--- NOTE | 2021-09-21 12:53 | Anesthesiology Consultation ---
Date of Service September 21, 2021 Assessment & Plan (1) Encounter for pre-operative examination: Chart Review Chart Review: Acceptable Risk for Surgery and Patient NOT seen in Pre Admission Testing Consults Requested none Additional Notes hcg negative History Surgery Operation Date: 09/21/21 08:20 Proposed Procedures p Endoscopic Retrograde Cholangiopancreatogram - Eliseo Lopez DO s Endoscopic Ultrasonography Upper - Eliseo Lopez DO Operation Date: 09/22/21 08:30 Proposed Procedures p Laparoscopic Cholecystectomy, Possible Cholangiogram - Justin Montoya MD Height/Weight Height: 5 ft 7 in Weight: 144.1 kg Allergies Allergy/AdvReac Type Severity Reaction Status Date / Time No Known Drug Allergies Allergy Unknown Unknown Verified 09/20/21 16:46 Medications Home Medications Medication Instructions Recorded Confirmed Last Taken sertraline 50 mg tablet 50 mg PO DAILY #90 tab 11/23/20 09/20/21 Unknown spihwbjrcr-ibswvnhbqsssr-vwggaicb 1 cap PO DAILY PRN #10 cap 08/03/21 09/20/21 Unknown 50 mg-300 mg-40 mg capsule (Fioricet) topiramate 100 mg tablet 100 mg PO BID 30 Days #60 tab 08/09/21 09/20/21 Unknown sertraline 25 mg tablet 25 mg PO DAILY 09/20/21 09/20/21 Unknown Active Medications Generic Name Dose Route Start Last Admin Trade Name Freq PRN Reason Stop Dose Admin Lactated Ringer's 1,000 mls @ 125 mls/hr 09/20/21 20:19 09/21/21 06:08 Lr IV 10/20/21 20:18 125 mls/hr .Q8H RAMO Administration Piperacillin Sod/Tazobactam 120 mls @ 30 mls/hr 09/21/21 00:00 09/21/21 09:27 Sod 4.5 gm/ Dextrose IV 09/23/21 00:00 30 mls/hr Q8H RAMO Administration Protocol Sertraline HCl 75 mg 09/21/21 09:00 09/21/21 07:54 Sertraline Hcl 50 Mg Tablet PO 10/21/21 08:59 75 mg DAILY RAMO Administration Topiramate 100 mg 09/20/21 21:00 09/21/21 07:54 Topiramate 100 Mg Tab PO 10/20/21 20:59 100 mg BID RAMO Administration NPO Date Last Intake of Fluids: 09/20/21 Time Last Intake of Fluids: 23:30 Last Intake of Fluids Comment: sip 0800 w/meds Date Last Intake of Solids: 09/19/21 Time Last Intake of Solids: 19:00 Past Medical History Medical History Anxiety Back pain Depression Migraines Morbid obesity Past Family History Family History Grandfather (Paternal) Prostate cancer Grandmother Asthma Cancer Heart disease Grandfather Hearing loss Other Allergies Migraine No family history of bleeding disorder Denies family history of Ovarian cancer Diabetes Myocardial infarction Breast cancer Lung cancer Colorectal cancer Hypertension Stroke Past Surgical History Surgical History History of placement of ear tubes History of wisdom tooth extraction Social History Smoking Status: Never smoker Hx Alcohol Use: Yes Alcohol type: beer and hard liquor alcohol intake frequency: holidays/special occasions only Hx Substance Use: No Physical Exam Vital Signs Last Vital Signs Temp 98.1 F 09/21/21 12:48 Pulse 71 09/21/21 12:48 Resp 20 09/21/21 12:48 BP 121/73 09/21/21 12:48 Pulse Ox 95 09/21/21 12:48 Testing Laboratory Results 09/21/21 07:46 09/21/21 07:46
--- NOTE | 2021-09-21 13:34 | GI REPORT ---
Patient Name: Juany Cavanaugh Procedure Date: 09/21/2021 1:18 PM Date of : 1995 Admit Type: Inpatient Age: 26 Gender: Female Attending MD: Eliseo Lopez DO Procedure: Upper EUS Providers: Eliseo Lopez DO Referring MD: Paulo Lynch, Justin Montoya, Domenico Stanford Indications: Elevated liver enzymes Medicines: General Anesthesia Complications: No immediate complications. Estimated blood loss: Minimal. Estimated Blood Loss: Estimated blood loss was minimal. Procedure: Pre-Anesthesia Assessment: - Prior to the procedure, a History and Physical was performed, and patient medications, allergies and sensitivities were reviewed. The patient's tolerance of previous anesthesia was reviewed. - The risks and benefits of the procedure and the sedation options and risks were discussed with the patient. All questions were answered and informed consent was obtained. - Patient identification and proposed procedure were verified prior to the procedure by the physician, the nurse and the apartment groundskeeper. The procedure was verified in the pre-procedure area in the procedure room. - Pre-procedure physical examination revealed no contraindications to sedation. - ASA Grade Assessment: II - A patient with mild systemic disease. - After reviewing the risks and benefits, the patient was deemed in satisfactory condition to undergo the procedure. - The anesthesia plan was to use general anesthesia. - Immediately prior to administration of medications, the patient was re-assessed for adequacy to receive sedatives. - The heart rate, respiratory rate, oxygen saturations, blood pressure, adequacy of pulmonary ventilation, and response to care were monitored throughout the procedure. - The physical status of the patient was re-assessed after the procedure. After obtaining informed consent, the endoscope was passed under direct vision. Throughout the procedure, the patient's blood pressure, pulse, and oxygen saturations were monitored continuously. The Endosonoscope was introduced through the mouth, and advanced to the third part of duodenum. The upper EUS was accomplished without difficulty. The patient tolerated the procedure well. Findings: ENDOSONOGRAPHIC FINDING: : There was no sign of significant endosonographic abnormality in the ampulla. No masses were identified. There was dilation in the common bile duct which measured up to 7 mm. Extensive hyperechoic material consistent with sludge was visualized endosonographically in the common bile duct. Extensive hyperechoic material consistent with sludge was visualized endosonographically in the gallbladder. There was abnormal echogenicity in the visualized portion of the liver. This area was hyperechoic. There was no sign of significant endosonographic abnormality in the entire pancreas. No masses, no cysts, no calcifications. One benign-appearing lymph node was visualized in the humaira hepatis region. It measured 21 mm by 13 mm in maximal cross-sectional diameter. The node was triangular, hypoechoic and had poorly defined margins. There was no sign of significant endosonographic abnormality in the left adrenal gland. No adrenal gland enlargement was identified. Impression: - There was no sign of significant pathology in the ampulla. - There was dilation in the common bile duct which measured up to 7 mm. - Hyperechoic material consistent with sludge was visualized endosonographically in the common bile duct. - Hyperechoic material consistent with sludge was visualized endosonographically in the gallbladder. - There was abnormal echogenicity in the visualized portion of the liver. This was hyperechoic. Tissue has not been obtained. However, the endosonographic appearance is consistent with fatty infiltration. - There was no sign of significant pathology in the entire pancreas. - One benign lymph node was visualized in the humaira hepatis region. Tissue has not been obtained. However, the endosonographic appearance is consistent with benign inflammatory changes. - Endosonographic images of the left adrenal gland were unremarkable. - No specimens collected. Recommendation: - Perform an ERCP today. Eliseo Lopez D.O. Eliseo Lopez, DO 09/21/2021 1:33:34 PM This report has been signed electronically. Note Initiated On: 09/21/2021 1:18 PM Number of Addenda: 0 I attest to the content of the Intraoperative Record and orders documented therein, exceptions below {[id number]}
--- NOTE | 2021-09-21 13:56 | GI REPORT ---
Patient Name: Juany Cavanaugh Procedure Date: 09/21/2021 1:33 PM Date of : 1995 Admit Type: Inpatient Age: 26 Gender: Female Attending MD: Eliseo Lopez DO Procedure: ERCP Providers: Eliseo Lopez DO Referring MD: Paulo Lynch, Justin Montoya, Domenico Stanford Indications: Abnormal endoscopic ultrasound of the biliary system, Elevated liver enzymes Medicines: General Anesthesia Complications: No immediate complications. Estimated blood loss: Minimal. Estimated Blood Loss: Estimated blood loss was minimal. Procedure: Pre-Anesthesia Assessment: - Prior to the procedure, a History and Physical was performed, and patient medications, allergies and sensitivities were reviewed. The patient's tolerance of previous anesthesia was reviewed. - The risks and benefits of the procedure and the sedation options and risks were discussed with the patient. All questions were answered and informed consent was obtained. - Patient identification and proposed procedure were verified prior to the procedure by the physician, the nurse and the certified hyperbaric technician. The procedure was verified in the procedure room. - Pre-procedure physical examination revealed no contraindications to sedation. - ASA Grade Assessment: II - A patient with mild systemic disease. - After reviewing the risks and benefits, the patient was deemed in satisfactory condition to undergo the procedure. - The anesthesia plan was to use general anesthesia. - Immediately prior to administration of medications, the patient was re-assessed for adequacy to receive sedatives. - The heart rate, respiratory rate, oxygen saturations, blood pressure, adequacy of pulmonary ventilation, and response to care were monitored throughout the procedure. - The physical status of the patient was re-assessed after the procedure. After obtaining informed consent, the scope was passed under direct vision. Throughout the procedure, the patient's blood pressure, pulse, and oxygen saturations were monitored continuously. The Duodenoscope was introduced through the mouth, and advanced to the duodenum and used to inject contrast into the bile duct. The ERCP was accomplished without difficulty. The patient tolerated the procedure well. Findings: The total fluoroscopy exposure time was 13 seconds. The inspector balance truing film was normal. The esophagus was successfully intubated under direct vision without detailed examination of the pharynx, larynx, and associated structures, and upper GI tract. The upper GI tract was grossly normal. The major papilla was normal. The bile duct was deeply cannulated with the short-nosed traction sphincterotome and guidewire. Contrast was injected. I personally interpreted the bile duct images. Contrast extended to the hepatic ducts. The main bile duct was moderately dilated and diffusely dilated, with a stone causing an obstruction. The largest diameter was 10 mm. Biliary sphincterotomy was made with a Fusion OMNI sphincterotome using ERBE electrocautery. There was no post-sphincterotomy bleeding. To discover objects, the biliary tree was swept with a 15 mm balloon starting at the bifurcation. Thick Sludge with numerous small stone fragments was swept from the duct. One larger pale stone was removed. No stones remained. One 10 Fr by 7 cm biliary stent with a single external flap and a single internal flap was placed 7 cm into the common bile duct. Bile flowed through the stent. The stent was in good position. The endoscope was withdrawn from the patient. Indomethacin 100 mg was given via suppository to decrease the risk of post-ERCP pancreatitis (PEP). Impression: - The major papilla appeared normal. - The entire main bile duct was moderately dilated, with a stone causing an obstruction. - Choledocholithiasis was found. Complete removal was accomplished by biliary sphincterotomy and balloon extraction. - One biliary stent was placed into the common bile duct. - Indomethacin given to decrease risk of post-ERCP pancreatitis. Recommendation: - Avoid aspirin and nonsteroidal anti-inflammatory medicines for 1 week. - Clear liquid diet today. - Repeat ERCP in 6 weeks to remove stent. Eliseo Lopez D.O. Eliseo Lopez, 09/21/2021 1:56:07 PM This report has been signed electronically. Note Initiated On: 09/21/2021 1:33 PM Number of Addenda: 0 I attest to the content of the Intraoperative Record and orders documented therein, exceptions below {[id number]}
--- NOTE | 2021-09-21 14:13 | Post Operative Brief Note ---
Immediate Post Op Note v1 Date of Surgery September 21, 2021 Pre & Post Diagnosis Operation Date: 09/21/21 08:20 Pre-Op Diagnosis: CHOLEDOCHOLITHIASIS Post-Op Diagnosis: eus, ercp with stone extraction and stent placement I identified the patient and participated in the time-out.: Yes Procedure Operation Date: 09/21/21 08:20 Actual Procedures p Endoscopic Retrograde Cholangiopancreato - Eliseo Lopez DO s Endoscopic Ultrasonography Upper - Eliseo Lopez DO Surgeon Eliseo Lopez DO Rn Complex Care none Estimated Blood Loss 0 Findings Consistent with Post-Op Diagnosis
--- NOTE | 2021-09-21 14:15 | Communication Note ---
Date of Service: September 21, 2021 The patient underwent endoscopic ultrasound and ERCP today. She was found to have a sludge-filled gallbladder, sludge within the common bile duct and a ston e. She underwent ERCP with gallstone extraction, sludge removal and biliary stent placement. Recommendations May have clear liquids from my perspective Avoid nonsteroidals for 1 week Antibiotic coverage for total of 10 days Cholecystectomy per general surgery Repeat ERCP for biliary stent removal in 6 to 8 weeks
--- NOTE | 2021-09-21 14:24 | Anesthesiology Progress Note ---
Date of Service September 21, 2021 Anesthesia Post Procedure Vital Signs Vital Signs: Temp Pulse Pulse Pulse Resp BP BP 09/21/21 14:15 60 20 120/76 09/21/21 14:05 36.2 C L 65 18 142/68 H 09/21/21 12:48 36.7 C 71 20 121/73 09/21/21 07:24 36.5 C 66 16 129/76 09/20/21 22:53 36.5 C 72 20 123/76 09/20/21 20:00 36.4 C L 83 16 09/20/21 19:00 66 18 09/20/21 18:20 69 15 09/20/21 18:10 75 16 09/20/21 18:00 62 20 153/84 H 09/20/21 17:50 69 26 H 09/20/21 17:40 74 17 09/20/21 17:30 72 22 137/81 09/20/21 17:20 71 26 H 09/20/21 17:13 73 17 130/89 09/20/21 17:12 73 11 L 09/20/21 16:10 64 22 09/20/21 16:08 70 15 09/20/21 15:22 36.8 C 83 16 139/91 BP Pulse Ox 09/21/21 14:15 95 09/21/21 14:05 95 09/21/21 12:48 95 09/21/21 07:24 96 09/20/21 22:53 97 09/20/21 20:00 111/69 96 09/20/21 19:00 128/60 100 09/20/21 18:20 97 09/20/21 18:10 95 09/20/21 18:00 97 09/20/21 17:50 98 09/20/21 17:40 98 09/20/21 17:30 98 09/20/21 17:20 93 09/20/21 17:13 99 09/20/21 17:12 09/20/21 16:10 98 09/20/21 16:08 96 09/20/21 15:22 96 Pain Intensity Right Upper Abdomen: Pain Intensity: 4 Transfer of Care Handoff Completed per policy Notes Mental Status: alert / awake / arousable Patient Amnestic to Procedure: Yes Nausea / Vomiting: adequately controlled Pain: adequately controlled Airway Patency, RR, SpO2: stable & adequate BP & HR: stable & adequate Hydration State: stable & adequate Anesthetic Complications: no major complications apparent
--- NOTE | 2021-09-21 14:26 | Fluoroscopy Report ---
[place] ERCP biliary ductal CLINICAL HISTORY: EXPLORE DUCTS COMPARISON STUDY: MRCP and right upper quadrant ultrasound September 20, 2021. FLUOROSCOPY TIME: 14 seconds. FLUOROSCOPIC IMAGES: 4 FINDINGS: Fluoroscopy was provided during ERCP. Common bile duct was cannulated. Final image demonstr ates a biliary stent which appears appropriately position. IMPRESSION: Fluoroscopy provided during ERCP and placement of a common bile duct stent. ACT 112: Negative or not required by law. Electronically signed by: Gael Mera M.D. 09/21/2021 2:25 PM
--- NOTE | 2021-09-21 16:01 | Anesthesiology Consultation ---
Date of Service September 21, 2021 Assessment & Plan (1) Encounter for pre-operative examination: Chart Review Chart Review: Acceptable Risk for Surgery and Patient NOT seen in Pre Admission Testing Consults Requested none History Surgery Operation Date: 09/21/21 08:20 Proposed Procedures p Endoscopic Retrograde Cholangiopancreatogram - Eliseo Lopez DO s Endoscopic Ultrasonography Upper - Eliseo Lopez DO Operation Date: 09/22/21 08:30 Proposed Procedures p Laparoscopic Cholecystectomy, Possible Cholangiogram - Justin Montoya MD Height/Weight Height: 5 ft 7 in Weight: 144.1 kg Allergies Allergy/AdvReac Type Severity Reaction Status Date / Time No Known Drug Allergies Allergy Unknown Unknown Verified 09/20/21 16:46 Medications Home Medications Medication Instructions Recorded Confirmed Last Taken sertraline 50 mg tablet 50 mg PO DAILY #90 tab 11/23/20 09/20/21 Unknown [id number]-fdkxwibinsqiy-uchkzsww 1 cap PO DAILY PRN #10 cap 08/03/21 09/20/21 Unknown 50 mg-300 mg-40 mg capsule (Fioricet) topiramate 100 mg tablet 100 mg PO BID 30 Days #60 tab 08/09/21 09/20/21 Unknown sertraline 25 mg tablet 25 mg PO DAILY 09/20/21 09/20/21 Unknown Active Medications Generic Name Dose Route Start Last Admin Trade Name Freq PRN Reason Stop Dose Admin Lactated Ringer's 1,000 mls @ 125 mls/hr 09/20/21 20:19 09/21/21 15:20 Lr IV 10/20/21 20:18 Not Given .Q8H RAMO Piperacillin Sod/Tazobactam 120 mls @ 30 mls/hr 09/21/21 00:00 09/21/21 15:32 Sod 4.5 gm/ Dextrose IV 09/23/21 00:00 30 mls/hr Q8H RAMO Administration Protocol Sertraline HCl 75 mg 09/21/21 09:00 09/21/21 07:54 Sertraline Hcl 50 Mg Tablet PO 10/21/21 08:59 75 mg DAILY RAMO Administration Topiramate 100 mg 09/20/21 21:00 09/21/21 07:54 Topiramate 100 Mg Tab PO 10/20/21 20:59 100 mg BID RAMO Administration Past Medical History Medical History Anxiety Back pain Depression Migraines Morbid obesity ERCP 09/20/21 Past Family History Family History Grandfather (Paternal) Prostate cancer Grandmother Asthma Cancer Heart disease Grandfather Hearing loss Other Allergies Migraine No family history of bleeding disorder Denies family history of Ovarian cancer Diabetes Myocardial infarction Breast cancer Lung cancer Colorectal cancer Hypertension Stroke Past Surgical History Surgical History History of placement of ear tubes History of wisdom tooth extraction Social History Smoking Status: Never smoker Hx Alcohol Use: Yes Alcohol type: beer and hard liquor alcohol intake frequency: holidays/special occasions only Hx Substance Use: No Physical Exam Vital Signs Last Vital Signs Temp 36.4 C L 09/21/21 15:40 Pulse 53 L 09/21/21 15:40 Resp 18 09/21/21 15:40 BP 132/82 09/21/21 15:40 Pulse Ox 97 09/21/21 15:40 Testing Laboratory Results 09/21/21 07:46 09/21/21 07:46
[2021-09-22] MEDS: PIPERACILLIN/TAZOBACTAM 4.5 GM in DEXTROSE 5% 100 ML IV SCH ×2 (00:04→07:43)
[2021-09-22] MEDS: LACTATED RINGER'S 1,000 ML IV SCH ×2 (02:03→11:52)
[2021-09-22 07:45] LABS: Basophils # (auto) 0.03 K/uL (0-0.2); Basophils % (auto) 0.3 %; Eosinophils # (auto) 0.28 K/uL (0-0.5); Eosinophils % (auto) 2.7 %; Hematocrit (blood only) 43.8 % (37-47); Hemoglobin 14.5 g/dL (12.0-16.0); Immature Granulocytes # (auto) 0.05 K/uL (0.00-0.02); Immature Granulocytes % (auto) 0.5 %; Lymphocytes # (auto) 3.75 K/uL (1.2-3.4); Lymphocytes % (auto) 36.7 %; Mean Corpuscular Hemoglobin 30.4 pg (25-34); Mean Corpuscular Hgb Conc 33.1 g/dL (32-36); Mean Corpuscular Volume 91.8 fL (80-100); Monocytes # (auto) 0.63 K/uL (0.11-0.59); Monocytes % (auto) 6.2 %; Neutrophils # (auto) 5.48 K/uL (1.4-6.5); Neutrophils % (auto) 53.6 %; Platelet Count 347 K/uL (130-400); RDW Coefficient of Variation 13.2 % (11.5-14.5); Red Blood Count 4.77 M/uL (4.2-5.4); White Blood Count 10.22 K/uL (4.8-10.8)
[2021-09-22] MEDS ORDERED: MIDAZOLAM HCL 1 MG/ML 2ML VIAL ONE (07:47)
[2021-09-22] MEDS ORDERED: fentaNYL citrate 100 MCG/2 ML VIAL ONE ×2 (07:47→09:21)
[2021-09-22 08:15] LABS: Albumin Globulin Ratio 1.3 (0.9-2); Albumin Level 4.1 gm/dl (3.4-5.0); BUN Creatinine Ratio 6.1 (10-20); Bilirubin,Total 1.4 mg/dl (0.2-1.0); Calcium 8.7 mg/dl (8.5-10.1); Creatinine Clr Calc Pharmacy 128.8 ml/min; Est GFR (African American) 91.6 ml/min; Est GFR (Non-African American) 79.1 ml/min; Globulin 3.1 gm/dl (2.5-4.0); Magnesium 2.2 mg/dl (1.7-2.4); Potassium 3.6 mmol/L (3.5-5.1); Total Protein 7.2 gm/dl (6.0-8.3)
[2021-09-22] MEDS ORDERED: ROCURONIUM BROMIDE 10 MG/ML 5 ML VIAL IV ONE (08:23)
[2021-09-22] MEDS ORDERED: NEOSTIGMINE METHYLSULFATE 1 MG/ML 10ML VIAL ONE (08:23)
[2021-09-22] MEDS ORDERED: ONDANSETRON INJ 2 MG/ML 2 ML VIAL ONE (08:23)
[2021-09-22] MEDS ORDERED: GLYCOPYRROLATE 0.2 MG/ML VIAL ONE ×2 (08:23→09:34)
[2021-09-22] MEDS ORDERED: LIDOCAINE 2% 2 ML VIAL/AMP(20MG/ML) INFIL ONE (08:23)
[2021-09-22] MEDS ORDERED: PROPOFOL IV EMULSION 10 MG/ML 20 ML VIAL IV ONE ×2 (08:23→10:11)
[2021-09-22] MEDS ORDERED: DEXAMETHASONE SOD INJ 4 MG/ML VIAL ONE (08:23)
[2021-09-22] MEDS ORDERED: HYDROmorphone INJ 1 MG/ML SYRINGE IV PRN (08:27)
[2021-09-22] MEDS ORDERED: ATROPINE SULFATE 0.1 MG/ML 10ML SYR IV PRN (08:27)
[2021-09-22] MEDS ORDERED: NALOXONE HCL 0.4 MG/1 ML VIAL/CARP IV PRN (08:27)
[2021-09-22] MEDS ORDERED: PROMETHAZINE HCL 12.5 MG in SODIUM CHLORIDE 0.9% 50 ML IV PRN (08:27)
[2021-09-22] MEDS ORDERED: ePHEDrine sulfate 50 MG/ML AMP IV PRN (08:27)
[2021-09-22] MEDS ORDERED: LABETALOL HCL IV 5 MG/ML 20ML IV PRN (08:27)
[2021-09-22] MEDS ORDERED: ONDANSETRON INJ 2 MG/ML 2 ML VIAL IV PRN (08:27)
[2021-09-22] MEDS ORDERED: FLUMAZENIL 0.1 MG/1 ML 10 ML VIAL IV PRN (08:27)
--- NOTE | 2021-09-22 08:27 | Anesthesiology Consultation ---
Date of Service September 22, 2021 Assessment & Plan Chart Review Chart Review: Acceptable Risk for Surgery and Patient NOT seen in Pre Admission Testing Consults Requested none ASA ASA3 Proposed Anesthesia Anesthesia Type: General Risk / Benefits Reviewed With: PT / POA / Parent / Guardian, Accepts Plan and Informed Consent Obtained Additional Comments: covid test neg. History Surgery Operation Date: 09/21/21 08:20 Proposed Procedures p Endoscopic Retrograde Cholangiopancreatogram - Eliseo Lopez DO s Endoscopic Ultrasonography Upper - Eliseo Lopez DO Operation Date: 09/22/21 08:30 Proposed Procedures p Laparoscopic Cholecystectomy, Possible Cholangiogram - Justin Montoya MD Height/Weight Height: 5 ft 7 in Weight: 144.1 kg Allergies Allergy/AdvReac Type Severity Reaction Status Date / Time No Known Drug Allergies Allergy Unknown Unknown Verified 09/22/21 08:19 Medications Home Medications Medication Instructions Recorded Confirmed Last Taken sertraline 50 mg tablet 50 mg PO DAILY #90 tab 11/23/20 09/20/21 Unknown [id number]-[id number]-xkmecpsr 1 cap PO DAILY PRN #10 cap 08/03/21 09/20/21 Unknown 50 mg-300 mg-40 mg capsule (Fioricet) topiramate 100 mg tablet 100 mg PO BID 30 Days #60 tab 08/09/21 09/20/21 Unknown sertraline 25 mg tablet 25 mg PO DAILY 09/20/21 09/20/21 Unknown Active Medications Generic Name Dose Route Start Last Admin Trade Name Freq PRN Reason Stop Dose Admin Lactated Ringer's 1,000 mls @ 125 mls/hr 09/20/21 20:19 09/22/21 02:03 Lr IV 10/20/21 20:18 125 mls/hr .Q8H RAMO Administration Piperacillin Sod/Tazobactam 120 mls @ 30 mls/hr 09/21/21 00:00 09/22/21 07:43 Sod 4.5 gm/ Dextrose IV 09/23/21 00:00 30 mls/hr Q8H RAMO Administration Protocol Sertraline HCl 75 mg 09/21/21 09:00 09/21/21 07:54 Sertraline Hcl 50 Mg Tablet PO 10/21/21 08:59 75 mg DAILY RAMO Administration Topiramate 100 mg 09/20/21 21:00 09/21/21 20:11 Topiramate 100 Mg Tab PO 10/20/21 20:59 100 mg BID RAMO Administration NPO Date Last Intake of Fluids: 09/21/21 Time Last Intake of Fluids: 23:00 Last Intake of Fluids Comment: sip 0800 w/meds Date Last Intake of Solids: 09/21/21 Time Last Intake of Solids: 19:00 Past Medical History Medical History Anxiety Back pain Depression Migraines Morbid obesity Exercise / Class Metabolic Activity II 4-5 Yardwork/Stairs/Walk up hill Past Family History Family History Grandfather (Paternal) Prostate cancer Grandmother Asthma Cancer Heart disease Grandfather Hearing loss Other Allergies Migraine No family history of bleeding disorder Denies family history of Ovarian cancer Diabetes Myocardial infarction Breast cancer Lung cancer Colorectal cancer Hypertension Stroke Past Surgical History Surgical History History of placement of ear tubes History of wisdom tooth extraction Past Anesthesia History No Hx of Anesthesia Complications and No Family Hx of Anesthesia Complications History of PONV No Hx of PONV and No Hx of Motion Sickness Social History Smoking Status: Never smoker Hx Alcohol Use: Yes Alcohol type: beer and hard liquor alcohol intake frequency: holidays/special occasions only Hx Substance Use: No Physical Exam Vital Signs Last Vital Signs Temp 36.5 C 09/22/21 08:19 Pulse 68 09/22/21 08:19 Resp 18 09/22/21 08:19 BP 131/66 09/22/21 08:19 Pulse Ox 95 09/22/21 08:19 Constitutional + morbidly obese ENMT Mouth: + poor dentition; no dentition abnormality Thyromental Distance: < 3.5 Finger Breadths Mallampati Class: II Neck normal visual inspection and trachea midline; neck extension not limited Respiratory normal respiratory effort Auscultation: lungs clear to auscultation bilaterally Cardiovascular Rate/Rhythm: regular rate and regular rhythm Heart Sounds: no murmur Vessels: no carotid bruit Musculoskeletal Spine: normal cervical ROM Extremities: extremities normal to inspection Neurologic moves all extremities Motor/Sensory: no sensory deficit Psychiatric Orientation: alert and oriented x 3 Testing Laboratory Results 09/22/21 07:30 09/22/21 07:30
--- NOTE | 2021-09-22 08:41 | History & Physical Bridge Note ---
Date of Service September 22, 2021 History & Physical Bridge Note I have examined the patient, reviewed the History & Physical and in the interval since the performance of the History & Physical I have noted the following changes of clinical significance: She is now status post ERCP with removal of stone in her common bile duct, sphincterotomy, stent placement. She denies pain currently. I discussed the risks and benefits of laparoscopic cholecystectomy with her. All her questions were answered, she is agreeable to proceed, and has signed consent. We will take her to the operating room at the earliest convenience.
[2021-09-22] MEDS ORDERED: BUPIVACAINE/EPINEPHRINE 0.25% 1:200,000 30 ML VIAL ONE (08:51)
--- NOTE | 2021-09-22 10:08 | Operative Report ---
Post Operative Report Pre & Post Diagnosis Operation Date: 09/21/21 08:20 Pre-Op Diagnosis: CHOLEDOCHOLITHIASIS Post-Op Diagnosis: eus, ercp with stone extraction and stent placement Operation Date: 09/22/21 08:30 Pre-Op Diagnosis: CHOLEDOCHOLITHIASIS Post-Op Diagnosis: CHOLEDOCHOLITHIASIS I identified the patient and participated in the time-out.: Yes Procedure Operation Date: 09/21/21 08:20 Actual Procedures p Endoscopic Retrograde Cholangiopancreato - Eliseo Lopez DO s Endoscopic Ultrasonography Upper - Eliseo Lopez DO Operation Date: 09/22/21 08:30 Actual Procedures p Laparoscopic Cholecystectomy(Not Applicable) - Justin Montoya MD Surgeon Justin Montoya MD [employer] Equipment Mechanic HEIDE Bos[place]; assist with the camera operation, tissue retraction, closure Estimated Blood Loss 0 Findings Consistent with Post-Op Diagnosis Acute inflammation of the gallbladder; stones present Specimens Gallbladder Anesthesia Type General Complications No immediate complications Description of Procedure The patient was taken to the operating room, and placed supine on the operating table. A timeout was performed, perioperative antibiotics were administered, SCD boots were placed. After adequate anesthesia and analgesia was obtained, the abdomen was prepped and draped in the normal sterile fashion. Local anesthetic was injected into and around the proposed incision sites. An incision was made with a 15 blade scalpel in the supraumbilical region and carried down to the level of the fascia. The fascia was grasped with a trach hook, and a varies needle was used to enter the abdominal cavity. The abdomen was insufflated to a pressure of 15 mmHg, and a 11 mm trocar was placed in this location. A 10 mm, 30 degree laparoscope was placed into the abdominal cavity, and the abdomen was surveyed. Two 5 mm trochars were placed along the right costal margin, and one 5 mm trocar was placed in the subxiphoid region under direct visualization. The gallbladder was grasped and retracted cephalad and laterally, exposing the triangle of Calot. Dissection began in the triangle with a combination of blunt dissection with the [place] dissector, and judicious use of the hook cautery. The cystic duct and cystic artery were dissected free circumferentially, and a critical view of safety was obtained. The cystic duct and cystic artery were clipped and transected, and the gallbladder was removed from the gallbladder fossa with the hook cautery. The camera was switched to a 5 mm, the gallbladder was placed in an Endo Catch bag, and removed via the supraumbilical port site. The camera was switched back to the 10 mm camera, and the abdomen was surveyed again. Hemostasis was checked and attended, and was excellent. The abdomen was copiously irrigated and suctioned free. Again hemostasis was checked and was excellent. All trochars were removed under direct visualization. The abdomen was desufflated. The fascia in the 11 mm port site was closed with a 0 Vicryl suture. The skin was closed with a running 4-0 Monocryl subcuticular stitch. Dermabond was applied. The patient tolerated the procedure without complicati on, and was transferred in stable condition to the PACU. All instrument, needle, and sponge counts were correct at the end of the case. My health information assistant was necessary throughout the procedure for tissue retraction, possible camera operation, and closure of the wounds. I understand that section 1842(b)(7)(D) of the Social Security act generally prohibits Medicare physician fee schedule payment for the services of assistants at surgery in teaching hospitals when qualified residents are available to furnish such services. I certify that the services for which payment is claimed were medically necessary and that no qualified resident was available to perform the services. I further understand that these services are subject to postpayment review by the Medicare carrier. I attest to the content of the Intraoperative Record and any orders documented therein. Any exceptions are noted below.
[2021-09-22] MEDS: fentaNYL citrate 100 MCG/2 ML VIAL IV PRN ×2 (10:26→10:44)
--- NOTE | 2021-09-22 10:51 | Anesthesiology Progress Note ---
Date of Service September 22, 2021 Anesthesia Post Procedure Vital Signs Vital Signs: Temp Pulse Pulse Resp BP BP Pulse Ox 09/22/21 10:45 67 23 147/74 H 97 09/22/21 10:35 69 20 119/67 97 09/22/21 10:26 36.5 C 64 12 132/64 96 09/22/21 08:19 36.5 C 68 18 131/66 95 09/22/21 07:36 36.4 C L 75 19 139/74 98 09/22/21 03:16 36.5 C 54 L 16 117/76 98 09/21/21 22:42 36.5 C 54 L 16 138/84 96 09/21/21 20:10 36.4 C L 64 16 140/75 95 09/21/21 17:05 36.5 C 56 L 16 125/78 97 09/21/21 16:05 36.4 C L 69 16 126/74 98 09/21/21 15:40 36.4 C L 53 L 18 132/82 97 09/21/21 15:05 36.9 C 55 L 20 136/82 96 09/21/21 14:55 57 L 17 142/85 H 95 09/21/21 14:45 56 L 20 129/85 94 09/21/21 14:35 36.8 C 56 L 18 135/83 95 09/21/21 14:25 58 L 19 128/82 95 09/21/21 14:15 60 20 120/76 95 09/21/21 14:05 36.2 C L 65 18 142/68 H 95 09/21/21 12:48 36.7 C 71 20 121/73 95 Pain Intensity Right Upper Abdomen: Pain Intensity: 4 Abdomen: Pain Intensity: 3 Transfer of Care Handoff Completed per policy Notes Mental Status: alert / awake / arousable Patient Amnestic to Procedure: Yes Nausea / Vomiting: adequately controlled Pain: adequately controlled Airway Patency, RR, SpO2: stable & adequate BP & HR: stable & adequate Hydration State: stable & adequate Anesthetic Complications: no major complications apparent
[2021-09-22] MEDS ORDERED: oxyCODONE/ACETAMINOPHEN 5mg/325mg TAB PO PRN (11:29)
[2021-09-22] MEDS: TOPIRAMATE 100 MG TAB PO SCH (11:41)
[2021-09-22] MEDS: SERTRALINE HCL 50 MG TABLET PO SCH (11:41)
--- NOTE | 2021-09-22 17:56 | Discharge Summary ---
Date of Service September 22, 2021 Admission HPI Per Admitting Provider Juany Cavanaugh is a 26 year old female who presents to the ER with severe right upper quadrant abdominal pain. She reports intermittent similar pains which resolve spontaneously for months for which she has related to gas pains and taken Gas-X and Pepto-Bismol in the past. However on this occasion she reports much more severe pain in right upper quadrant radiating to back. Associated loose stools, nausea and vomiting. Progressively getting more severe, 10/10 at worse, currently resolved after medications given in the ER. No fever or chills. No change to her urine. In the ER total bilirubin 2.3, AST 179, ALT 234, ALP 111. US liver showed largely sludged filled gallbladder with suspected small gallstones with no sonographic evidence of acute cholecystitis. Surgery have been contacted. She was referred to medicine for admission and ongoing management of acute cholecystitis and elevated LFTs. Principal Diagnosis 1. Choledocholithiasis s/p ERCP and cholecystectomy 2. Abnormal LFTsdowntrending Discharge Exam General: Resting comfortably in her hospital bed. Eating lunch. Does not appear ill or toxic.. NAD. HEENT: Head is AT/NC. Buccal mucosa is moist and pink Neck: No JVD. Negative hepatojugular reflex Cardiac: Distant heart sounds due to habitus but RRR without murmurs, gallops, rubs Lungs: CTA without W/R/R Abdomen: Normoactive X4. Surgical dressing dry and intact. No indwelling drains. Abdomen soft and nontender throughout. Extremities: + Adiposity without true pitting edema. Neuro: A&O X4. Cranial nerves II through XII are grossly intact. No focal neuro deficits Skin: No obvious skin lesions or rashes Psych: Appropriate affect. 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 Routine Procedures Performed Operation Date: 09/21/21 08:20 Actual Procedures p Endoscopic Retrograde Cholangiopancreato - Marten Lopez, DO s Endoscopic Ultrasonography William - Eliseo Lopez DO Operation Date: 09/22/21 08:30 Actual Procedures p Laparoscopic Cholecystectomy(Not Applicable) - Justin Montoya MD Ordered Studies 09/20/21 15:47 US gallbladder Stat 09/20/21 20:04 MR MRCP Routine 09/21/21 13:06 US upper EUS PACS images Routine 09/21/21 14:00 FL ERCP biliary ductal Routine Hospital Course (1) Choledocholithiasis: 26-year-old white female with no significant underlying past medical history presented with abdominal discomfort * mild leukocytosis, afebrile * Abnormal LFTs * Right upper quadrant ultrasound showing sludge filled gallbladder with small stones. No evidence of cholecystitis as no pericholecystic fluid. No ductal dilatation * MRCP showing: And a stone in the gallbladder neck. No convincing evidence for acute cholecystitis. Questionable pancreas divisum but normal lipase noted * S/p ERCP by Dr. Lopez on 09/21 where she had a stone and sludge seen in the common bile duct. In addition, was found to have a sludge-filled gallbladder. Stone and sludge extracted and biliary stent placed. Will need to follow-up with GI in 6 weeks for stent removal. Avoid NSAIDs X 1 week * Seen by general surgery and underwent laparoscopic cholecystectomy on the morning of 09/22. Had an uneventful perioperative course. Has been cleared by the surgeon for discharge. To follow-up in 2 weeks At this point time, patient denies any abdominal pain. She is tolerating oral intake. Her LFTs remain elevated but are downtrending. Her white blood cell count has normalized. She has remained afebrile and hemodynamically stable. She is medically hemodynamically stable for discharge to home with continued antibiotic therapy as recommended by GI. She has been empirically on Zosyn while in house. Will convert to Augmentin for total of 10 days. She needs to follow-up with general surgery and GI as outlined. Lengthy discussion with patient regarding likelihood for diarrhea following cholecystectomy. She should maintain a low-fat diet. (2) Cholelithiasis: See above (3) Elevated LFTs: * Likely secondary to stones and sludgesee above as outlined * Total bilirubin: 2.3. AST: 179. ALT: 234--> currently downtrending at 1. 4/117/232 * Secondary to #1 * Order given for follow-up labs to be obtained next week * Patient should avoid alcohol or excessive/Tylenol related products (4) Depression: * Continue sertraline 75mg PO daily (5) Migraines: * Continue topiramate 100mg PO BID Plan of care discussed with Dr. Lynch. Further orders as warranted. Total Time Total Time Spent Total Time Spent (In Minutes): 35 minutes including time spent with patient, preparation of documentation, coordination of care, discussion with attending provider and specialists Discharge Plan Discharge Items Patient Disposition: Home - Self-Care Reason For Visit: CHOLEDOCHOLITHIASIS Discharge Diagnosis: 1. Choledocholithiasis (stone in the gallbladder and common bile duct) S/P ERCP and cholecystectomy 2. Abnormal liver function studiesimproving Activity: Resume your previous activity Non-emergency contact: Primary Care Provider, Surgeon and Lead Printer Call non-emergency contact if: you have any medication questions and your symptoms worsen Follow-up/Referrals: Shree Reddy DO [Physician] - 10/03/21 11:20 am Justin Montoya MD [Physician] - 10/06/21 10:30 am Domenico Stanford DO [Primary Care Provider] - 10/04/21 11:30 am Diet: Low Fat Addtl Attending Provider Instructions: You presented to the emergency department complaining of abdominal pain and were found to have stones and sludge in your gallbladder and common bile duct (pathway from the gallbladder to the small intestinal tract). The term for this is choledocholithiasis. You had a procedure called an ERCP which is an endoscopic procedure to remove the stones/sludge in the common bile duct and a stent was placed to open this canal. This stent will need to be removed in 6 weeks thus you need to follow-up with GI regarding this You will need to complete 10 days of antibiotics to help prevent infection In addition, following the ERCPyou had your gallbladder removed laparoscopi chaka You will need to follow-up with the surgeon in 2 weeks Your liver function studies were elevated given the blockage in the common bile duct causing a backup of bile. Following the ERCP, your liver function studies are moving in the right direction but have not yet normalized. You are to have follow-up labs drawn in 1 week (see order) You need to avoid anti-inflammatories for 1 week following the ERCP procedure. Can use Tylenol but would do so sparingly given the recent elevation in your liver function studies Avoid alcohol until your liver function studies have normalized Would recommend maintaining a low-fat diet. Now that your gallbladder has been removed, you do not have a "storage container" for the bile to be held. Thus, bile will be constantly dumped into your small intestinal tract and this can cause loose stools. If this becomes a problem, notify your surgeon or family practitioner to discuss addition of medications. Otherwise, no that this is a common phenomenon after having your gallbladder removed Return to the ED for any new or worsening symptoms Addtl Slag Wheeler Provider Instructions: Post-Surgical ~Discharge Instructions Activity Recommendations: - lifting limitation: (10 pounds for 2-3 weeks), - exercise/sex/sports limit: (nonstrenuous for 2 weeks), - driving or machine use limit: (none for 1 week or until pain free), - Shower/bathe limit: (may shower, no submerging incisions underwater for 2 weeks) Diet: - Resume previous diet SPECIAL CARE INSTRUCTIONS: - May shower.. Let water run over area and pat dry. - Surgical glue will fall off on its own, Do not pick at it as this can cause infection. - Call the surgeon's office with any questions or concerns - - (ex. temperature higher than 101 degrees F, excessive bleeding or pain). MEDICATIONS: - Resume previous medications unless instructed otherwise by your surgeon. - May take extra strength Tylenol as needed for mild to moderate pain -650 mg Tylenol every 6 hours as needed. - Avoid aspirin and NSAIDs (Ibuprofen, Motrin, Aleve) for 1 week given ERCP procedure - Percocet 1 every 4 hours, as needed for pain FOLLOW UP VISIT: - If not already scheduled, please call the office to schedule a two week follow-up appointment. Office number Pending Studies at Discharge: Yes (gallbladder pathology, will be reviewed at postop visit) Stand-Alone Forms: My [employer], Smoking Cessation Medications and DC Order Prescriptions: New oxycodone-acetaminophen [Percocet] 5-325 mg Tablet 1 tab PO Q4H PRN (Reason: pain) Qty: 18 RF: 0 amoxicillin-pot clavulanate 875-125 mg tablet 1 tab PO BID Qty: 16 RF: 0 Continued [id number]-fayl [Fioricet] 50-300-40 mg capsule 1 cap PO DAILY PRN (Reason: headache) Qty: 10 RF: 0 topiramate 100 mg tablet 100 mg PO BID 30 Days Qty: 60 RF: 5 sertraline 50 mg tablet 50 mg PO DAILY Qty: 90 RF: 0 sertraline 25 mg tablet 25 mg PO DAILY RF: 0 Discharge Orders: Discharge Order (Routine); Ordered 09/22/21 Ordered By: Jamilah Tobar/Other Patient Handouts: After Gallbladder Surgery Admission Data Admit Date/Time: 09/20/21 17:59 Attending Provider: Paulo Lynch Admit Provider: Paulo Peralta Primary Care Provider: Domenico Stanford Other Providers: Eliseo Lopez ; Paulo Peralta ; Justin Montoya ; Shree Reddy Other Interventions: Discharge Summary Assessment (RN) Last Done: 09/22/21 15:47 Coding Level of Care Code D/C DAY MANAGEMENT >30 MINS Diagnoses Cholelithiasis K80.20 Elevated LFTs R79.89 Depression F32.A Migraines G43.909 Choledocholithiasis K80.50
== END 2021-09-22 16:37 | disposition home or self-care (01) | DRG 418 ==
LOC: ED 15:17 → SUATTDRO 17:59 → 3N 17:59